=== PATIENT | female | born 1965 | race Caucasian/White ===

== ENCOUNTER 2019-10-14 20:20 | Emergency (ER) | payer BC, SELFPAY ==
--- NOTE | ~2019-10-14 | CT_ITS ---
EXAMINATION: CT abdomen pelvis w con DATE: 10/14/2019 21:54 INDICATION: Epigastric pain and nausea TECHNIQUE: Computed tomography (CT) of the abdomen and pelvis was performed with 100 mL Omnipaque-350 intravenous contrast. Automated exposure control and iterative reconstruction technique were employe d. The dose-length product was 623.48 mGy-cm. COMPARISON: CT abdomen dated 07/29/2008 FINDINGS: Minimal dependent atelectasis in the bilateral lower lobes. Heart size is normal. No pericardial or p leural effusion. Cholecystectomy clips at the gallbladder fossa. Liver, spleen, pancreas, bilateral a drenal glands and kidneys are normal. Normal appendix. There is residual oral contrast material throu ghout the mid to distal colon likely related to a reported prior outside institution CT from 5 days p rior. No bowel obstruction or abnormal bowel wall thickening. Bladder is normal. Fibroid uterus. Bila teral tubal ligation clips. 3.6 x 2.0 x 2.0 cm fluid attenuation cystic structure at the right adnexa . This appears positioned between the 2 tubal ligation clips which were previously positioned in rela tively close proximity and differential would include ovarian cyst or potentially short segmental hyd rosalpinx positioned between the 2 clips. No free intraperitoneal gas or fluid. No pathologically enl arged abdominal or pelvic lymphadenopathy. Severe spondylosis at L5-S1 with mild spondylosis in the m ore cephalad lumbar and lower thoracic spine. IMPRESSION: 1. 3.6 x 2.0 x 2.0 cm cystic structure at the right adnexa which could represent either an ovarian cy st or potentially a segmental hydrosalpinx positioned between 2 tubal ligation clips. No other acute intra-abdominal/pelvic process. Reviewed, dictated and finalized at location A. R SCREWDRIVER OPERATOR IMPRESSION: 1. 3.6 x 2.0 x 2.0 cm cystic structure at the right adnexa which could represen t either an ovarian cyst or potentially a segmental hydrosalpinx positioned bet ween 2 tubal ligation clips. No other acute intra-abdominal/pelvic process.
[2019-10-14 20:27] VITALS: BP 181/87; PULSE 100; RESP 19; O2SAT 100
--- NOTE | 2019-10-14 20:40 | ED.ABDPAIN ---
HPI - Abdominal Pain General Chief Complaint: Abdominal Pain Stated Complaint: abd & back pain Time Seen by Provider: 10/14/19 20:23 Source: patient and RN notes reviewed Mode of arrival: ambulatory Limitations: no limitations History of Present Illness HPI narrative: Pt is a 54 y/o female with a Hx of cholecystectomy, who presents to the ED with c/o worsening RUQ pain starting roughly 1.5 months ago. She notes that she was initially evaluated by her PCP for her pain, and states that she was treated with Protonix for gastritis. Pt notes that she later received an endoscopy on 09/29/19, which showed no acute abnormalities. She states that she received a CT scan of her ABD/Pelvis 5 days ago, but notes that she hasn't yet received the results of the scan. Pt states that her pain worsened throughout the day today, noting that it has been constant all day. She notes that her pain radiates into her rt lower back, and states that nothing in particular seems to aggravate her pain. Pt reports nausea accompanying her pain as well as dysuria starting this evening. She currently denies any diarrhea. MD elicited complaint: abdominal pain Pertinent past history: other (fatty liver) Onset (ago): month(s) (1.5) Pain Consistency: constant Location: RUQ Radiation: other (rt low back) Associated symptoms: nausea and dysuria Related Data Home Medications Medication Instructions Recorded Confirmed Lactobacillus acidophilus 1,400 mmu cells PO DAILY 07/21/19 07/24/19 [Probiotic Acidophilus] albuterol sulfate [ProAir HFA] 1 inh INHALATION QID PRN 07/21/19 07/24/19 lansoprazole [Prevacid] 15 mg PO DAILY 07/21/19 07/24/19 Allergies Allergy/AdvReac Type Severity Reaction Status Date / Time hydrocodone Allergy Mild Itching Verified 10/14/19 20:33 meperidine AdvReac Mild Itching Verified 10/14/19 20:33 Review of Systems Review of Systems: All systems reviewed & are unremarkable except as noted in HPI and below Gastrointestinal: Gastrointestinal: Reports abdominal pain (RUQ pain radiating into rt low back), Denies diarrhea and Reports nausea Genitourinary: Genitourinary: Reports dysuria PMFSH Past Medical History Medical History Anxiety Arthritis Asthma Back pain Fatty liver GERD (gastroesophageal reflux disease) Hypoglycemia HOPE (obstructive sleep apnea) Spinal stenosis Surgical History Surgical History History of tubal ligation Painful total knee replacement, left Status post right partial knee replacement Family History Family History (Updated 12/10/16 @ 13:50 by DOCTOR UNKNOWN) Father Family history of congenital heart disease Family history of arthritis Mother Family history of malignant neoplasm of breast in first degree relative Social History Social History Smoking status: Former smoker Smoking end date: 09/09/85 Gender identity (if verbalized by the patient): Female Comments PCP is Dr. Stevens. Exam Const: General: healthy appearing, no acute distress, well developed and alert Orientation/consciousness: patient oriented x3 Limitations: no limitations HENMT: Head: normocephalic and atraumatic Ears: external ears normal Mouth: Yes oropharynx normal and Yes moist mucous membranes Resp: Effort & Inspection: normal respiratory effort and able to speak in complete sentences Auscultation: clear to auscultation bilaterally Cardio: Rate: regular rate Rhythm: regular rhythm Peripheral pulses: radial pulses present and popliteal pulses present GI: GI Palp: Yes Soft to palpation, Yes Tenderness to palpation present (GI) (mild upper abdominal tenderness in epigastrium/RUQ/LUQ), No Guarding due to palpation present (GI) and No Palpable mass present Back/Spine/Pelvis: Other: Right paraspinal muscular tenderness T4 through L1 w/o midline tenderness, no left sided pain. Skin: General skin exam: normal color and no rash
[2019-10-14] MEDS: MORPHINE SULFATE 4 MG/ML INJ IV PUSH (20:57)
[2019-10-14] MEDS: ONDANSETRON INJ 4 MG/2 ML VIAL IV PUSH (20:58)
[2019-10-14 20:59] VITALS: BP 144/82; PULSE 74; RESP 18; O2SAT 100
[2019-10-14 21:10] LABS: Basophils Absolute Auto 0.1 K/mm3 (0.0-0.1); Basophils Percent Auto 0.9 % (0.2-1.2); Eosinophils Absolute Auto 0.2 K/mm3 (0-0.3); Eosinophils Percent Auto 2.9 % (0-4.4); Hematocrit 39.8 % (37.0-47.0); Immature Granulocyte Absolute 0.01 K/mm3 (0.00-0.031); Immature Granulocyte Percent A 0.1 % (0-0.5); Lymphocytes Absolute Auto 2.48 K/mm3 (0.9-3.2); Lymphocytes Percent Auto 36.2 % (18.3-44.2); Mean Corpuscular HGB Conc 30.2 g/dl (32-36); Mean Corpuscular Hemoglobin 23.3 pg (26-34); Mean Corpuscular Volume 77.3 fl (80-100); Mean Platelet Volume 10.1 fl (7.4-10.4); Monocytes Absolute Auto 0.4 K/mm3 (0.1-0.6); Monocytes Percent Auto 6.4 % (2.6-8.5); Neutrophils Absolute Auto 3.7 K/mm3 (1.3-6.7); Neutrophils Percent Auto 53.5 % (45.5-73.1); Platelet Count Result 301 k/mm3 (150-375); Red Blood Count 5.15 M/mm3 (4.2-5.4); Red Cell Distribution Width 15.2 % (11.5-14.5); White Blood Count 6.9 K/mm3 (4.5-10.0)
[2019-10-14 21:17] LABS: Add Urine Microscopic? YES; Appearance Urine Clear (Clear); Bilirubin Urine Negative (Negative); Blood Urine Negative (Negative); Color Urine Straw (Yellow); Glucose Urine UA Negative (Negative); Ketones Urine Negative (Negative); Leukocyte Esterase Ur 3+ LEU/UL (Negative); Mucus Urine Rare /lpf; Nitrate Urine Negative (Negative); Protein Urine Negative (Negative); RBC Urine 0-2 /hpf (0-2); Specific Grav Ur 1.006 (1.001-1.035); Squamous Epithelial Cell Urine Few /hpf (Few); Urobilinogen Urine Negative mg/dL (<2.0); WBC Urine 0-3 /hpf
[2019-10-14 21:21] LABS: Alanine Aminotransferase 16 U/L (4-35); Albumin Level 4.5 g/dL (3.5-5.1); Alkaline Phosphatase 92 U/L (38-126); Aspartate Amino Transferase 21 U/L (14-36); Bilirubin,Total 0.3 mg/dL (0.2-1.3); Blood Urea Nitrogen 13 mg/dL (7-17); Calcium 9.8 mg/dL (8.4-10.2); Carbon Dioxide 27 mmol/L (22-30); Chloride 100 mmol/L (98-107); Estimated Glomerular Filt Rate 52; Glucose 134 mg/dL (65-105); Lipase 89 U/L (23-300); Potassium 3.7 mmol/L (3.4-5.0); Sodium 140 mmol/L (137-145)
[2019-10-14 23:11] VITALS: BP 127/80; PULSE 61; RESP 16; O2SAT 100
== END 2019-10-14 23:13 | disposition home or self-care (01) ==
PROVIDERS: Emergency Provider Emergency Medicine
DX: R10.13 Epigastric pain (principal); N83.201 Unspecified ovarian cyst, right side; M19.90 Unspecified osteoarthritis, unspecified site; J45.909 Unspecified asthma, uncomplicated; K21.9 Gastro-esophageal reflux disease without esophagitis; G47.33 Obstructive sleep apnea (adult) (pediatric); Z96.653 Presence of artificial knee joint, bilateral; Z87.891 Personal history of nicotine dependence
CPT/HCPCS: 36415; 74177; 80053; 81001; 83690; 85025; 96374; 96375; 99284; J2270; J2405; Q9967

== ENCOUNTER 2020-07-05 09:42 | Outpatient (CLI) | payer BC, SELFPAY ==
--- NOTE | 2020-07-05 11:00 | NEURO_ITS ---
Patient Number: [id number] Impression: # Complains of pain in upper and lower extremities. History of fibromyalgia. # Normal motor and sensory nerve conduction study except subtle evolving Carpal Tunnel Syndrome on the right side. # Normal needle/EMG exam. # Clinical correlation recommended. Nerve Conduction Studies Anti Sensory Summary Table Stim Site NR Peak (ms) P-T Amp (?V) Site1 Site2 Delta-P (ms) Dist (cm) Sathish (m/s) Left Median Anti Sensory (2-3nd Digit) Wrist 2.8 85.4 Wrist 2-3nd Digit 2.8 14.0 50 Wrist 2.7 75.5 Wrist 2-3nd Digit 2.8 14.0 50 Right Median Anti Sensory (2-3nd Digit) Wrist 3.3 26.1 Wrist 2-3nd Digit 3.3 14.0 42 Wrist 3.2 53.5 Wrist 2-3nd Digit 3.3 14.0 42 Left Radial Anti Sensory (Base 1st Digit) Wrist 2.0 29.2 Wrist Base 1st Digit 2.0 0.0 Right Radial Anti Sensory (Base 1st Digit) Wrist 2.4 34.5 Wrist Base 1st Digit 2.4 0.0 Left Sup Fibular Anti Sensory (Ant Lat Mall) 14 cm 3.1 22.4 14 cm Ant Lat Mall 3.1 16.0 52 Right Sup Fibular Anti Sensory (Ant Lat Mall) 14 cm 2.9 18.1 14 cm Ant Lat Mall 2.9 16.0 55 Left Sural Anti Sensory (Lat Mall) Calf 3.6 19.1 Calf Lat Mall 3.6 16.0 44 Right Sural Anti Sensory (Lat Mall) Calf 3.0 5.5 Calf Lat Mall 3.0 16.0 53 Left Ulnar Anti Sensory (5th Digit) Wrist 2.3 61.8 Wrist 5th Digit 2.3 14.0 61 Right Ulnar Anti Sensory (5th Digit) Wrist 2.3 56.0 Wrist 5th Digit 2.3 14.0 61 Motor Summary Table Stim Site NR Onset (ms) O-P Amp (mV) Site1 Site2 Delta-0 (ms) Dist (cm) Sathish (m/s) Left Median Motor (Abd Poll Brev) Wrist 3.0 3.6 Elbow Wrist 4.2 26.0 62 Elbow 7.2 3.2 Right Median Motor (Abd Poll Brev) Wrist 3.8 2.9 Elbow Wrist 4.3 24.0 56 Elbow 8.1 2.8 Left Peroneal Motor (Vastus Med) Ankle 3.7 2.0 Popit Ankle 7.5 39.0 52 Popit 11.2 1.4 Right Peroneal Motor (Vastus Med) Ankle 3.9 1.1 Popit Ankle 6.8 36.0 53 Popit 10.7 2.4 Left Tibial Motor (Abd Garcia Brev) Ankle 4.5 8.0 Knee Ankle 7.8 40.0 51 Knee 12.3 5.1 Right Tibial Motor (Abd Garcia Brev) Ankle 4.1 9.6 Knee Ankle 8.2 42.0 51 Knee 12.3 9.7 Left Ulnar Motor (Abd Dig Minimi) Wrist 2.6 8.2 A Elbow Wrist 4.8 28.0 58 A Elbow 7.4 7.8 Right Ulnar Motor (Abd Dig Minimi) Wrist 2.5 4.8 A Elbow Wrist 4.4 27.0 61 A Elbow 6.9 4.2 F Wave Studies NR F-Lat (ms) L-R F-Lat (ms) Left Median (Mrkrs) (Abd Poll Brev) 26.19 0.64 Right Median (Mrkrs) (Abd Poll Brev) 26.84 0.64 Left Peroneal (Mrkrs) (EDB) 48.09 0.66 Right Peroneal (Mrkrs) (EDB) 48.75 0.66 Left Tibial (Mrkrs) (Abd Hallucis) 48.13 0.00 Right Tibial (Mrkrs) (Abd Hallucis) 48.13 0.00 Left Ulnar (Mrkrs) (Abd Dig Min) 25.23 0.38 Right Ulnar (Mrkrs) (Abd Dig Min) 24.85 0.38 EMG Side Muscle Nerve Root Ins Act Fibs Amp Dur Recrt Comment Right 1stDorInt Ulnar C8-T1 Nml Nml Nml Nml Nml Right Ext Indicis Radial (Post Int) C7-8 Nml Nml Nml Nml Nml Right Ext Digitorum Radial (Post Int) C7-8 Nml Nml Nml Nml Nml Right BrachioRad Radial C5-6 Nml Nml Nml Nml Nml Right PronatorTeres Median C6-7 Nml Nml Nml Nml Nml Right Abd Poll Brev Median C8-T1 Nml Nml Nml Nml Nm
== END 2020-07-05 09:43 | disposition home or self-care (01) ==
PROVIDERS: PCP Internal Medicine; Visit Provider Internal Medicine
DX: M79.621 Pain in right upper arm (principal); M79.622 Pain in left upper arm
CPT/HCPCS: 95886; 95913

== ENCOUNTER 2021-02-13 12:03 | Outpatient (CLI) | payer BC, SELFPAY ==
--- NOTE | ~2021-02-13 | XR_ITS ---
EXAMINATION: XR orbits min 4V DATE: 02/13/2021 13:07 INDICATION: Right-sided face injury. TECHNIQUE: 4 views of the orbits were obtained. COMPARISON: None. FINDINGS: Bone alignment is normal. No fracture. IMPRESSION: 1. No fracture. Reviewed, dictated and finalized at location A. IMPRESSION: 1. No fracture.
== END 2021-02-13 12:04 ==
LOC: MICIMG 12:05
PROVIDERS: PCP Internal Medicine; Visit Provider Internal Medicine
DX: S01.80XA Unspecified open wound of other part of head, initial encounter (principal); X58.XXXA Exposure to other specified factors, initial encounter
CPT/HCPCS: 70200

== ENCOUNTER 2021-02-16 14:21 | Outpatient (CLI) | payer BC, SELFPAY ==
--- NOTE | ~2021-02-16 | MR_ITS ---
EXAMINATION: MR brain/brain stem wo con EXAM DATE: 02/16/2021 15:04 INDICATION: Dizziness, syncope collapse. Fall, facial injury 02/12/2021. TECHNIQUE: Magnetic resonance imaging (MRI) of the brain/brain stem obtained without contrast. Kei al T1, axial diffusion, gradient echo (T2*), T1, T2, FLAIR sequences obtained. There is no prior st udy for comparison. FINDINGS: Small right frontal scalp contusion along the brow. There are no areas of restricted diffus ion to suggest acute infarction. There is no acute hemorrhage seen on the T2*, a hemosiderin sensiti ve sequence. No intraparenchymal brain mass lesion. There is minimal periventricular and subcortical T2/FLAIR signal hyperintensity, nonspecific but probably related to small vessel ischemic disease (m icroangiopathy). There are no extra-axial collections. Flow voids are seen in the cerebral arterie s on the T2-weighted sequences consistent with their expected patency. The orbits are unremarkable. IMPRESSION: 1. Small right frontal scalp contusion. 2. Minimal microangiopathy. Reviewed, dictated and finalized at location A.
== END 2021-02-16 14:22 ==
PROVIDERS: PCP Internal Medicine; Visit Provider Internal Medicine
DX: R42 Dizziness and giddiness (principal); R55 Syncope and collapse; S00.03XA Contusion of scalp, initial encounter; X58.XXXA Exposure to other specified factors, initial encounter
CPT/HCPCS: 70551

== ENCOUNTER 2021-06-20 14:28 | Outpatient (CLI) | payer BC, SELFPAY ==
--- NOTE | ~2021-06-20 | MM_ITS ---
EXAMINATION: MM screening efren BI w marcial HISTORY: Screening TECHNIQUE: Craniocaudal and mediolateral oblique 3-D tomosynthesis images were obtained and synthetic 2-D images were generated. CAD analysis was submitted and interpreted. COMPARISON: Comparison to multiple prior studies sequentially, with oldest reviewed study dated 06/07. BREAST PARENCHYMAL COMPOSITION: There are scattered areas of fibroglandular density. FINDINGS: There is no evidence of suspicious mass, calcification, or architectural distortion to sugg est malignancy in either breast. There has been no suspicious interval change. IMPRESSION: 1. No mammographic evidence of malignancy. 2. Recommend routine screening mammography in one year. BI-RADS Category 1: Negative Reviewed, dictated and finalized at location A.
== END 2021-06-20 14:29 | disposition home or self-care (01) ==
LOC: ANHIMG 14:30
PROVIDERS: PCP Internal Medicine; Visit Provider Obstetrics & Gynecology
DX: Z12.31 Encounter for screening mammogram for malignant neoplasm of breast (principal)
CPT/HCPCS: 77063; 77067

== ENCOUNTER → 2021-07-20 13:15 | Outpatient (CLI) | payer BC, SELFPAY ==
--- NOTE | ~2021-07-20 | CT_ITS ---
EXAMINATION: CT abdomen pelvis wo/w con DATE: 07/20/2021 14:10 INDICATION: Right flank pain, kidney stone TECHNIQUE: Computed tomography (CT) of the abdomen and pelvis was performed without intravenous contr ast. CT of the abdomen and pelvis was then performed with a total of 100 mL Omnipaque 350 intravenous contrast using a double-bolus technique for simultaneous opacification of the renal parenchyma and r enal collecting system. The dose-length product (DLP) was 1745.27 mGy-cm. Automated exposure control and iterative reconstruction technique were employed. COMPARISON: 10/14/2019 FINDINGS: The lung bases are clear. The heart size is normal. The gallbladder is surgically absent. T he liver, spleen, pancreas, and adrenal glands are normal. Kidneys are unremarkable. No suspicious re nal or urothelial lesion is identified. No stones are identified in the kidneys, ureters, or bladder. There is no hydronephrosis or hydroureter. Colonic diverticulosis is present without evidence of div erticulitis. No pathologically enlarged abdominal or pelvic lymph nodes are identified. There is no f ree intraperitoneal gas or evidence of bowel obstruction. A small fluid collection situated between t ubal ligation clips in the right adnexa has decreased in size. The appendix is normal. There is sever e lumbar spondylosis at L5-S1. A moderate volume of colonic stool is present. IMPRESSION: 1. No CT correlate for the patient's symptoms. No urolithiasis identified. Reviewed, dictated and finalized at location B. ER EXPERT
== END ==
PROVIDERS: PCP Internal Medicine; Visit Provider Internal Medicine
DX: N20.0 Calculus of kidney (principal)
CPT/HCPCS: 74178; Q9967

== ENCOUNTER 2021-08-01 09:34 | Outpatient (CLI) | payer BC, SELFPAY ==
--- NOTE | ~2021-08-01 | XR_ITS ---
EXAMINATION: XR thoracic spine 2V EXAM DATE: 08/01/2021 10:21 INDICATION: Pain in thoracic spine. TECHNIQUE: Frontal and lateral projections of the thoracic spine as well as lateral swimmers projecti on of the upper thoracic spine for interpretation. There is no prior study for comparison. FINDINGS: There are cholecystectomy clips. Mild thoracic spondylosis, mild mid thoracic dextroscolio sis. There are no bony erosions identified. There are no acute fractures identified. The vertebral helen dies are aligned in the AP dimension. IMPRESSION: Mild thoracic spondylosis and dextroscoliosis. Reviewed, dictated and finalized at location A. MIC DESIGNER
== END 2021-08-01 09:35 ==
PROVIDERS: PCP Internal Medicine; Visit Provider Nurse Practitioner Adult Health
DX: M47.894 Other spondylosis, thoracic region (principal)
CPT/HCPCS: 72070

== ENCOUNTER 2022-07-31 10:08 | Outpatient (CLI) | payer BC, SELFPAY ==
--- NOTE | ~2022-07-31 | DEXA_ITS ---
Bone Density Report Name: ERICK GIRON Age: 57 Sex: Female Ethnicity: White Date of : 1965 Indication: postmenopausal; screening for osteoporosis; height loss; inflammatory bowel disease; asthma or emphysema; Referring Provider: ROCK, LILIA Dos Santos Study: Bone densitometry was performed. Exam Date: July 31, 2022 Accession number: [id number] Bone Density: Region BMD T-score Z-score Classification AP Spine(L1-L4) 1.059 0.1 1.3 Normal Femoral Neck (Left) 0.778 -0.6 0.5 Normal Total Hip (Left) 0.912 -0.2 0.5 Normal Femoral Neck (Right) 0.795 -0.5 0.6 Normal Total Hip (Right) 0.960 0.1 0.9 Normal Total Hip Mean 0.936 -0.1 0.7 Normal World Health Organization criteria for BMD impression classify patients as: Normal (T-score at or above -1.0), Osteopenia (T-score between -1.0 and -2.5), or Osteoporosis (T-score at or below -2.5). 10-year Fracture Risk: FRAX not reported because: All T-scores for Spine Total, Hip Total, Femoral Neck at or above -1.0 Clinical Information Provided by Patient: Has used the following medications: Vitamin D Has the following medical conditions: Asthma or Emphysema, Inflammatory bowel diseases Patient maximum height was 64 Menopause Age: 51 No regular weight bearing exercise Drinks caffeinated beverages Onset of menses at age 14 Number of children 3 Impression: The patient has normal bone mass. Discussion: BONE DENSITY IS ABOVE THE MINIMUM DESIRABLE LEVEL AT ALL SKELETAL SITES TESTED. This patient?s bone mineral density is above the minimum desirable level (T-score -1.0 or better) at all sites measured. The patient should follow a healthful lifestyle (good nutrition with adequate calcium and vitamin D, and appropriate weight-bearing exercise). Follow-Up: Consider repeating this study in 5 years or sooner if there is some new clinical indication. Reported by: KAI on 07/31/2022 10:48:00 AM. Reviewed, dictated and finalized at location ACarline CORTES
== END 2022-07-31 10:09 | disposition home or self-care (01) ==
LOC: ANHIMG 10:09
PROVIDERS: PCP Internal Medicine; Visit Provider Internal Medicine
DX: Z78.0 Asymptomatic menopausal state (principal)
CPT/HCPCS: 77080

== ENCOUNTER → 2022-07-31 10:53 | Outpatient (CLI) | payer BC, SELFPAY ==
--- NOTE | ~2022-07-31 | MM_ITS ---
EXAMINATION: MM screening efren BI w marcial HISTORY: Screening mammogram TECHNIQUE: Craniocaudal and mediolateral oblique 3-D tomosynthesis images were obtained and synthetic 2-D images were generated. CAD analysis was submitted and interpreted. COMPARISON: 06/20/2021, 10/05/2019, 08/05/2018 lateral screening mammogram examinations BREAST PARENCHYMAL COMPOSITION: There are scattered areas of fibroglandular density. FINDINGS: There is no evidence of suspicious mass, calcification, or architectural distortion to sugg est malignancy in either breast. There has been no suspicious interval change. IMPRESSION: 1. No mammographic evidence of malignancy. 2. Recommend routine screening mammography in one year. BI-RADS Category 1: Negative Reviewed, dictated and finalized at location A. R CRIME INVESTIGATOR
== END ==
PROVIDERS: PCP Internal Medicine; Visit Provider Obstetrics & Gynecology
DX: Z12.31 Encounter for screening mammogram for malignant neoplasm of breast (principal)
CPT/HCPCS: 77063; 77067

== ENCOUNTER 2024-02-09 20:58 | Emergency (ER) | payer BC, SELFPAY ==
[2024-02-09] VITALS (7 sets, daily range): BP systolic 115–132; BP diastolic 80–104; PULSE 62–75; RESP 14–20; TEMP 37; O2SAT 96–100
--- NOTE | ~2024-02-09 | XR_ITS ---
EXAMINATION: XR chest 1V portable DATE: 02/09/2024 21:40 INDICATION: Chest pain. Shortness of breath. TECHNIQUE: A single frontal view of the chest was obtained. COMPARISON: Chest 2 views 10/05/2015 FINDINGS: There is no pneumonia, pleural effusion, or pneumothorax. The heart size is normal. Surgica l clips in the right upper quadrant are likely from cholecystectomy. IMPRESSION: 1. No acute cardiopulmonary disease. Reviewed, dictated and finalized at location E.
--- NOTE | 2024-02-09 20:59 | ECG_ITS ---
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 Measurements Intervals [place] Rate: 69 P: 27 [place]: 147 QRS: 10 QRSD: 81 T: 29 QT: 369 QTc: 398 Interpretive Statements SINUS RHYTHM NORMAL ELECTROCARDIOGRAM No previous ECG available for comparison Electronically Signed On 02-10-2024 07:30:36 CDT by Dom Ng M.D.
[2024-02-09] MEDS: ASPIRIN 81 MG CHEWABLE TABLET 324 MG PO (21:21)
[2024-02-09 21:33] LABS: Basophils Percent Auto 0.6 % (0.2-1.2); Eosinophils Absolute Auto 0.3 K/mm3 (0-0.3); Eosinophils Percent Auto 4.4 % (0-4.4); Hematocrit 39.1 % (37.0-47.0); Hemoglobin 12.9 g/dL (12.0-15.0); Immature Granulocyte Absolute 0.01 K/mm3 (0.00-0.031); Immature Granulocyte Percent A 0.2 % (0-0.5); Lymphocytes Absolute Auto 2.26 K/mm3 (0.9-3.2); Lymphocytes Percent Auto 36.5 % (18.3-44.2); Mean Corpuscular Hemoglobin 27.9 pg (26-34); Mean Corpuscular Volume 84.6 fl (80-100); Mean Platelet Volume 10.1 fl (7.4-10.4); Monocytes Absolute Auto 0.6 K/mm3 (0.1-0.6); Monocytes Percent Auto 8.9 % (2.6-8.5); Neutrophils Absolute Auto 3.1 K/mm3 (1.3-6.7); Neutrophils Percent Auto 49.4 % (45.5-73.1); Platelet Count Result 225 k/mm3 (150-375); Red Blood Count 4.62 M/mm3 (4.2-5.4); Red Cell Distribution Width 13.4 % (11.5-14.5); White Blood Count 6.2 K/mm3 (4.5-10.0)
--- NOTE | 2024-02-09 21:40 | PC.NURSE ---
4 81mg baby aspirin given PO and an 18g L AC IV established at 2120. EDP in chart and unable to document at this time.
--- NOTE | 2024-02-09 21:43 | ED.CHESTPAIN ---
HPI - Chest Pain General Chief Complaint: Chest Pain Stated Complaint: Chest pain Time Seen by Provider: 02/09/24 21:39 History of Present Illness HPI narrative: Patient is a 58-year-old female who presents to the emergency department this evening complaining of chest pain which has been ongoing for over a month. Patient admits that she has been going under a lot of stress recently and has been dealing with anxiety which she believes could be contributing to the symptoms, however, she wanted to be evaluated and make sure that this she is having is not from her heart. She denies any history of cardiovascular disease and his currently denying any shortness of breath although patient admits that she has been getting some exertional dyspnea at times. Denies any nausea, vomiting or abdominal pain. Patient also denies any recent illness or any fevers or chills at home. No additional symptoms or concerns at this time. Related Data Home Medications Medication Instructions Recorded Confirmed albuterol sulfate 90 mcg/actuation 1 inh inhalation QID PRN Shortness 07/21/19 01/14/21 aerosol inhaler (ProAir HFA) Of Breath lansoprazole 15 mg capsule,delayed 15 mg PO DAILY 07/21/19 01/14/21 release (Prevacid) gabapentin 100 mg capsule 300 mg PO BID 01/12/21 01/14/21 lisinopril 5 mg tablet 5 mg PO DAILY 01/12/21 01/14/21 paroxetine HCl 10 mg tablet (Paxil) 10 mg PO DAILY 01/12/21 01/14/21 Allergies Allergy/AdvReac Type Severity Reaction Status Date / Time hydrocodone Allergy Mild Itching Verified 02/09/24 21:06 meperidine AdvReac Mild Itching Verified 02/09/24 21:06 Review of Systems Review of Systems: All systems are reviewed and are negative unless stated otherwise in the HPI. [facility] Past Medical History Medical History (Updated 02/09/24 @ 22:59 by Rhea Lake MD) Anxiety Arthritis Asthma Back pain Fatty liver GERD (gastroesophageal reflux disease) Hypoglycemia HOPE (obstructive sleep apnea) Spinal stenosis Surgical History Surgical History History of tubal ligation Painful total knee replacement, left Status post right partial knee replacement Family History Family History Father Family history of congenital heart disease Family history of arthritis Mother Family history of malignant neoplasm of breast in first degree relative Social History Social History Smoking status: Former smoker Smoking end date: 09/09/85 Gender identity (if verbalized by the patient): Female Exam Narrative: General: Alert, awake, afebrile, in no acute distress. HEENT: PERRL, no rhinorrhea, no post nasal drip, oropharynx clear. Cardiovascular: Regular rate and rhythm, no murmurs, rubs or gallops, no peripheral edema. Respiratory: Clear to auscultation bilaterally, no tachypnea, no wheezing, no rhonchi, no rubs, no respiratory distress. Abdomen: Soft, nontender, nondistended, no rebound, no guarding, no peritoneal signs. Musculoskeletal: No joint swelling or deformity, normal muscle tone. Skin: No rashes or petechia, no signs of infection. Neurological: Alert and oriented to person, place, and time. Follows all commands. No focal deficits, speech is clear and fluent. Course Vital Signs Vital signs: Vital Signs Temperature 98.6 F 02/09/24 21:04 Pulse Rate 75 02/09/24 21:04 Respiratory Rate 20 02/09/24 21:04 Blood Pressure 132/83 02/09/24 21:04 Pulse Oximetry 99 02/09/24 21:04 Temperature 98.6 F 02/09/24 21:04 Pulse Rate 71 02/09/24 21:36 Respiratory Rate 20 02/09/24 21:04 Blood Pressure 132/83 02/09/24 21:04 Pulse Oximetry 100 02/09/24 21:37 Oxygen Delivery Room Air 02/09/24 21:37 MDM - Chest Pain MDM Narrative Medical decision making narrative: The patient was evaluated by myself in the emerg
[2024-02-09 21:45] LABS: Alanine Aminotransferase 16 U/L (6-35); Albumin Level 4.4 g/dL (3.5-5.1); Alkaline Phosphatase 67 U/L (38-126); Anion Gap 8 mmol/L (4-12); Aspartate Amino Transferase 25 U/L (14-36); Bilirubin,Total 0.5 mg/dL (0.2-1.3); Blood Urea Nitrogen 14 mg/dL (7-17); Calcium 9.5 mg/dL (8.4-10.2); Carbon Dioxide 26 mmol/L (22-30); Chloride 102 mmol/L (98-107); Estimated CRCL calculation 47 ml/min; Estimated Glomerular Filt Rate 46; Glucose 109 mg/dL (65-110); Lipase 71 U/L (23-300); Sodium 136 mmol/L (137-145)
[2024-02-09 21:51] LABS: Prothrombin Time 13.9 Seconds (11.1-14.7)
[2024-02-09 21:52] LABS: Partial Thromboplastin Time 27.8 Seconds (22.3-36.8)
[2024-02-09 21:56] LABS: Troponin I < 0.012 ng/mL (0.000-0.034)
[2024-02-09 21:58] LABS: Magnesium 1.9 mg/dL (1.6-2.3)
== END 2024-02-09 23:19 | disposition home or self-care (01) ==
PROVIDERS: Emergency Provider Emergency Medicine; PCP Internal Medicine
DX: R07.89 Other chest pain (principal); J45.909 Unspecified asthma, uncomplicated; M19.90 Unspecified osteoarthritis, unspecified site; K21.9 Gastro-esophageal reflux disease without esophagitis; G47.33 Obstructive sleep apnea (adult) (pediatric); F41.9 Anxiety disorder, unspecified; Z96.653 Presence of artificial knee joint, bilateral; Z79.899 Other long term (current) drug therapy; Z87.891 Personal history of nicotine dependence
CPT/HCPCS: 36415; 71045; 80053; 83690; 83735; 84484; 85025; 85610; 85730; 93005; 99284; A9270

== ENCOUNTER 2024-03-03 02:41 | Day surgery (SDC) | payer BC, SELFPAY ==
[2024-03-02 13:32] VITALS: BMI 29.5
[2024-03-03] VITALS (8 sets, daily range): BP systolic 89–133; BP diastolic 54–71; PULSE 47–55; RESP 10–21; TEMP 36.4; O2SAT 95–99; BMI 29.9
[2024-03-03 09:32] LABS: Basophils Absolute Auto 0.1 K/mm3 (0.0-0.1); Basophils Percent Auto 0.9 % (0.2-1.2); Eosinophils Absolute Auto 0.3 K/mm3 (0-0.3); Eosinophils Percent Auto 5.4 % (0-4.4); Hematocrit 40.1 % (37.0-47.0); Hemoglobin 13.1 g/dL (12.0-15.0); Immature Granulocyte Absolute 0.01 K/mm3 (0.00-0.031); Immature Granulocyte Percent A 0.2 % (0-0.5); Lymphocytes Absolute Auto 2.14 K/mm3 (0.9-3.2); Lymphocytes Percent Auto 38.4 % (18.3-44.2); Mean Corpuscular HGB Conc 32.7 g/dl (32-36); Mean Corpuscular Volume 85.7 fl (80-100); Mean Platelet Volume 10.4 fl (7.4-10.4); Monocytes Absolute Auto 0.6 K/mm3 (0.1-0.6); Monocytes Percent Auto 10.4 % (2.6-8.5); Neutrophils Absolute Auto 2.5 K/mm3 (1.3-6.7); Neutrophils Percent Auto 44.7 % (45.5-73.1); Platelet Count Result 204 k/mm3 (150-375); Red Blood Count 4.68 M/mm3 (4.2-5.4); Red Cell Distribution Width 13.4 % (11.5-14.5); White Blood Count 5.6 K/mm3 (4.5-10.0)
[2024-03-03 09:45] LABS: Anion Gap 8 mmol/L (4-12); Blood Urea Nitrogen 12 mg/dL (7-17); Calcium 9.1 mg/dL (8.4-10.2); Carbon Dioxide 28 mmol/L (22-30); Chloride 105 mmol/L (98-107); Estimated CRCL calculation 47 ml/min; Estimated Glomerular Filt Rate 46; Glucose 101 mg/dL (65-110); Potassium 4.2 mmol/L (3.4-5.0); Sodium 141 mmol/L (137-145)
--- NOTE | 2024-03-03 10:49 | WPDHPUPDATE1 ---
History and Physical Update Update Date/Time: 03/03/24 10:49 History and Physical has been reviewed, including an updated exam of the patient. There are NO changes in the patient's condition. Risks, benefits, and alternatives have been discussed and questions answered. Patient agrees to proceed with procedure.
--- NOTE | 2024-03-03 10:49 | WPDMODSED ---
Moderate Sedation Note-Pt Data Patient Data Diagnosis: Chest pain Present Complaint: Chest pain Procedure to be performed/Plan: Coronary angiography, left heart cath, +/- PCI Allergies Allergy/AdvReac Type Severity Reaction Status Date / Time codeine AdvReac Intermediate Itching Verified 03/03/24 09:49 Home Medications Medication Instructions Recorded Confirmed Type albuterol sulfate 90 mcg/actuation 1 inh inhalation QID PRN Shortness 07/21/19 03/02/24 History aerosol inhaler (ProAir HFA) Of Breath mupirocin 2 % topical ointment 1 applic topical TID #1 tube 07/21/19 01/14/21 Rx gabapentin 100 mg capsule 300 mg PO BID 01/12/21 03/02/24 History B6 1.7 mg-folic 400 mcg-B12 2.4 1 cap PO DAILY 03/02/24 03/02/24 History dmo-zarqbs-fnjxflmpmcpy oral capsule (Neuriva Plus Brain Performance) aspirin 81 mg tablet 81 mg PO DAILY 03/02/24 03/02/24 History buspirone 10 mg tablet 10 mg PO DAILY 03/02/24 03/02/24 History linaclotide 145 mcg capsule 145 mcg PO DAILY PRN Constipation 03/02/24 03/02/24 History (Linzess) lisinopril 20 mg tablet 20 mg PO DAILY 03/02/24 03/02/24 History metoprolol tartrate 25 mg tablet 12.5 mg PO BID 03/02/24 03/02/24 History nitroglycerin 0.4 mg sublingual 0.4 mg sublingual PRN PRN Angina 03/02/24 03/02/24 History tablet pantoprazole 40 mg tablet,delayed 40 mg PO DAILY 03/02/24 03/02/24 History release paroxetine HCl 10 mg tablet 10 mg PO DAILY 03/02/24 03/02/24 History rosuvastatin 10 mg tablet 10 mg PO DAILY 03/02/24 03/02/24 History trazodone 100 mg tablet 100 mg PO HS PRN Insomnia 03/02/24 03/02/24 History Current Medications: Active Medications Sodium Chloride (Normal Saline Iv) 500 mls @ 100 mls/hr IV CONT .Q5H TEODORO Sedation/Anesthesia: No previous sedation/anesthesia problems (including family history). [facility] Past Medical History Medical History Anxiety Arthritis Asthma Back pain Fatty liver GERD (gastroesophageal reflux disease) Hypoglycemia HOPE (obstructive sleep apnea) Spinal stenosis Surgical History Surgical History History of tubal ligation Painful total knee replacement, left Status post right partial knee replacement Family History Family History Father Family history of congenital heart disease Family history of arthritis Mother Family history of malignant neoplasm of breast in first degree relative Social History Social History Smoking packs per day: 0.5 Smoking cigarettes per day: 10.0 Years smoked: 1 Smoking pack-years: 0.50 Smoking status: Former smoker Tobacco type: cigarettes Second hand tobacco smoke exposure: Yes Smoking end date: 09/09/85 Substance use: never Living arrangements: with family Gender identity (if verbalized by the patient): Female Spiritual care concerns: No Mod Sed Physical Exam Physical Exam Pre Procedural Exam: Normal: Appearance, Lungs, Heart Rhythm, Neuro Exam, Abdomen, Extremities and Skin Hours since solid foods: 12 Hours since liquid intake: 8 Mallampati Classification: class III Internal Medicine - PN: Obj Da Vital Signs Vital Signs: Vital Signs - 24 hr 03/03/24 09:30 Temperature 36.4 C Pulse Rate 50 L Respiratory Rate 21 H Blood Pressure 133/71 Pulse Oximetry 99 Oxygen Delivery Room Air Meds/Results Medications: Active Medications Generic Name Dose Route Start Last Admin Trade Name Freq PRN Reason Stop Dose Admin Sodium Chloride 500 mls @ 100 mls/hr 03/03/24 08:30 Normal Saline Iv IV CONT .Q5H TEODORO Labs 03/03/24 09:22 03/03/24 09:22 Labs: Laboratory Results - last 24 hr 03/03/24 09:22 WBC 5.6 RBC 4.68 Hgb 13.1 Hct 40.1 MCV 85.7 MCH 28.0 MCHC 32.7 RDW 13.4 Plt Count 204 MPV 10
--- NOTE | 2024-03-03 11:15 | P.PCNCC_ITS ---
Cardiac Cath Procedure Note Date of procedure:: 03/03/24 Performing physician:: CATHETERIZATION LABORATORY REPORT Procedure Date: 03/03/2024 Mergers And Acquisitions Manager: Jailyn Stevens M.D., [facility]? Referring Physician: Ramiro Dodd M.D. ? Anesthesia: Versed and Fentanyl were ordered and given in my presence at 10:51, procedure ended at 11:12. Supervision of nurse monitored moderate sedation with Versed and Fentanyl was provided for 21 minutes. Total of Versed 1mg and Fentanyl 50mcg were administered by the Serials Librarian RN Mc Echavarria. Pre-op Diagnosis: Coronary artery disease Post-op Diagnosis: Mild non-obstructive coronary artery disease Procedure(s): 1. Moderate sedation 2. Ultrasound-guided access of the right radial artery 3. Coronary angiography Access Site: Right radial artery Brief History and Clinical Indications: Patient is a 58 year old female who is referred for [facility] for angina. All risks, benefits and alternatives to left heart catheterization with or without percutaneous coronary intervention was discussed at length with the patient. Risk of complications including but not limited to bleeding, infection, arrhythmia, stroke, worsening kidney function, blood loss, groin hematoma, limb loss, emergency coronary artery bypass grafting, and even were discussed with the patient and all questions were answered. The patient understood and wished to proceed. Time out called, patient name, date of , medical record number, allergies, procedure performed, identify Mergers And Acquisitions Manager, patient and staff member concurred with accurate data, procedure carried on. Findings: LEFT HEART CATHETERIZATION FINDINGS: 1. Left main: The left main coronary artery is widely patent without any significant obstructive disease. 2. Left anterior descending: The LAD and the diagonal branches have luminal irregularities without any significant obstructive angiographic disease. 3. Ramus: The Ramus has mild disease in the proximal portion. No significant obstructive angiographic disease. 4. Left circumflex: The LCX is co-dominant. The LCX has luminal irregularities. The OM branch has mild disease in the mid portion. No significant obstructive angiographic disease. 5. Right coronary artery: The RCA has mild luminal irregularities without any significant obstructive angiographic disease. The RCA is co-dominant vessel. Description of Procedure: Informed consent signed and placed in the chart. Patient transferred to labor economics professor room. Prepped and draped in usual sterile fashion. 2% lidocaine injected subcutaneously in right wrist area. 22-gauge venipuncture catheter used to access the right radial artery under ultrasound guidance. 6-FR slender sheath placed in right radial artery. Nitroglycerine and Verapamil were given intraarterial through the sheath. Versacore wire advanced under fluoroscopy 5F Tig 4 diagnostic catheter engaged Right Coronary Artery 5F FL 4 diagnostic catheter engaged Left Main Coronary Artery. Multiple orthogonal angiogram obtained and reviewed Hemostasis was achieved by application of TR band. Post Operative Condition: Stable No significant blood loss Disposition: Home Plan: The patient will be monitored in the recovery area. Discharge home after post-cath bed rest is completed. The above findings were discussed with the referring physician. Continue aggressive medical therapy and risk factor modification. ? Jailyn Stevens M.D. Interventional Cardiology
== END 2024-03-03 14:47 | disposition home or self-care (01) ==
PROVIDERS: PCP Internal Medicine; Visit Provider Internal Medicine
PROC: 4A023N7 Measurement of Cardiac Sampling and Pressure, Left Heart, Percutaneous Approach (ICD-10-PCS; CPT 93452; principal; 2024-03-03 10:00)
DX: I25.10 Atherosclerotic heart disease of native coronary artery without angina pectoris (principal); F41.8 Other specified anxiety disorders; E78.5 Hyperlipidemia, unspecified; I10 Essential (primary) hypertension; Z87.891 Personal history of nicotine dependence
CPT/HCPCS: 36415; 80048; 85025; 93458; C1769; C1887; C1894; J1644; J2250; J2305; J3010; J7040

== ENCOUNTER 2024-06-19 14:05 | Outpatient (CLI) | payer BC, SELFPAY ==
--- NOTE | ~2024-06-19 | MM_ITS ---
EXAMINATION: MM screening efren BI w marcial HISTORY: Screening TECHNIQUE: Craniocaudal and mediolateral oblique 3-D tomosynthesis images were obtained and synthetic 2-D images were generated. CAD analysis was submitted and interpreted. COMPARISON: Comparison to multiple prior studies sequentially, with oldest reviewed study dated 06/07. BREAST PARENCHYMAL COMPOSITION: Not dense: There are scattered areas of fibroglandular density. FINDINGS: There is no evidence of suspicious mass, calcification, or architectural distortion to sugg est malignancy in either breast. There has been no suspicious interval change. IMPRESSION: 1. No mammographic evidence of malignancy. 2. Recommend routine screening mammography in one year. BI-RADS Category 1: Negative Reviewed, dictated and finalized at location B.
== END 2024-06-19 14:06 | disposition home or self-care (01) ==
LOC: ANHIMG 14:09
PROVIDERS: PCP Internal Medicine; Visit Provider Internal Medicine
DX: Z12.31 Encounter for screening mammogram for malignant neoplasm of breast (principal)
CPT/HCPCS: 77063; 77067

== ENCOUNTER 2025-07-19 01:28 | Day surgery (SDC) | payer BC, SELFPAY ==
[2025-07-15 15:54] VITALS: BMI 30.9
--- OUTSIDE RECORDS SUMMARY | 2025-07-19 01:30 | XMS_ITS | Clinical Summary ---
Author Organization [facility] Address [address] [place] [address] Phone Care Team Providers Care Compliance Vice President Name Role Phone Jeremy Wilson MD Primary Care Provider [phone] Mandy Dubose APRN, [employer] Unavailable [phone] Allergies No known active allergies Medications Fluticasone-Lai meterol (ADVAIR DISKUS IN) take by inhalation. Active ALBUTEROL SULFATE HFA IN take by inhalation. Active busPIRone (BUSPAR) 10 MG Tablet Take 10 mg by mouth 2 times daily. Active dicyclomine (BENTYL) 20 MG Tablet Take 20 mg by mouth every 6 hours as needed. Active ergocalciferol (VITAMIN D) 38002 UNIT Capsule Take 50,000 Units by mouth once a week. Active gabapentin (NEURONTIN) 300 MG Capsule Take 300 mg by mouth in the morning and at bedtime. Active linaclotide (Linzess) 145 MCG Capsule Take by mouth every morning (before breakfast). Active lisinopril (PRINIVIL, ZESTRIL) 20 MG Tablet Take 20 mg by mouth daily. Active PARoxetine (PAXIL) 20 MG Tablet Take 20 mg by mouth daily. Active traZODone (DESYREL) 100 MG Tablet Take 100 mg by mouth nightly. Active Active Problems No known active problems Family History Medical History Relation Name Comments Diabetes Brother Diabetes Father Diabetes Mother Hemachromatosis Mother Relation Name Status Comments Brother Father Mother Social History Tobacco Use Types Packs/Day Years Used Date Smoking Tobacco: Former Cigarettes 0 Q uit: 09/09/2006 Smokeless Tobacco: Never Tobacco Cessation:Counseling Given: Not Answered Alcohol Use Standard Drinks/Week Comments Not Currently 0 (1 standard drink = 0.6 oz pur e alcohol) Comments Unknown Sex and Gender Information Value Date Recorded Sex Assigned at Not on file Legal Sex Female 8:46 AM REGISTERED MASSAGE THERAPIST Gender Identity Not on file Sexual Orientation Not on file Last Filed Vital Signs Vital Sign Reading Time Taken Comments Blood Pressure 108/74 10/17/2023 1:17 PM REGISTERED MASSAGE THERAPIST Pulse 73 10/17/2023 1:17 PM REGISTERED MASSAGE THERAPIST Temperature 36.3 C (97.4 F) 10/17/2023 1:17 PM REGISTERED MASSAGE THERAPIST Respiratory Rate 18 10/17/2023 1:17 PM REGISTERED MASSAGE THERAPIST Oxygen Saturation 98% 10/17/2023 1:17 PM REGISTERED MASSAGE THERAPIST Inhaled Oxygen Concentration - - Weight 77.1 kg (170 lb) 10/17/2023 1:17 PM REGISTERED MASSAGE THERAPIST Height 162.6 cm (5' 4) 10/17/2023 1:17 PM REGISTERED MASSAGE THERAPIST Body Mass Index 29.18 10/17/2023 1:17 PM REGISTERED MASSAGE THERAPIST Plan of Treatment Health Maintenance Due Date Last Done Comments Hepatitis C Virus (HCV) Screening 1966 Mammogram 1966 TdaP Immunization 1966 Hepatitis B Immunization (1 of 3 - 19+ 3-dose series) 1985 Pap Smear 1987 Cervical Cancer Screening (CCS) 1996 HPV/Cotest 1996 Cologuard 2011 Colonoscopy 2011 Colorectal Cancer Screening 2011 Immunochemical Fecal Occult Blood 2011 Pneumococcal Immunization (5 0+ years) (1 of 1 - PCV) 2016 Zoster Immunization (1 of 2) 2016 Influenza Immunization (#1) 05/10/202510/2022, 06/19/2022 SARS-COV-2 Immunization ( - 2024- season) 2025 03/24/2021, 03/03/2021 Respiratory Syncytial Virus (RSV) Immunization (Adult) (1 - 1-dose 75+ series) 2041 Human Papillomavirus (HPV) Immunization Aged Out No longer eligible b ased on patient's age to complete this topic Meningococcal Immunization (ACWY) Aged Out No longer eligible b ased on patient's age to complete this topic Rotavirus Immunization Aged Out No lo nger eligible based on patient's age to complete this topic Insurance Care Teams Compliance Vice President Relationship Specialty Start Date End Date Jeremy Wilson MD PCP - General Internal Medicine 07/24/23 Mandy Dubose APRN, [employer]CR[employer] [address] [place] [address] Nurse Practitioner Advanced Practice Nurse 10/22/23
--- OUTSIDE RECORDS SUMMARY | 2025-07-19 01:30 | XMS_ITS | Data Portability ---
Author Organization [facility] [place] Address [address] [place] [address] [address] Care Team Providers Care Dental Ceramist Name Role Phone CORNEL QUEZADA Primary Care Provider [phone] Assessment Encounter Date Assessment Date Assessment LastModified by Organization Details LastModified Time 06/26/2022 06/26/2022 healthy female exam/menopaus e pap done mammogram ordered and encouraged colonoscopy due 2028 dexa baseline at 61 Encouraged weight bearing exercise and 1500mg daily of Calcium with Vitamin D FU 1year or prn [email or web address] Not available 06/26/2022 16:39:31 Plan of Treatment Reminders Order Date Submit Date Provider Last Modified By Organization Details Last Modified Time Details Appointments None recorded . Lab urinalys is, dipstick 2022 023 [email or web address] [place], [place], [address], 3 16:01:08 urinalys is, dipstick 2022 023 [email or web address] [place], [address], [place], [address], 14:08:48 Referral None recorded . Procedures None recorded . Surgeries None recorded . Imaging US, pelvis 2022 023 [email or web address] [place], [address], [place], [address], 3 21:59:57 US, transvag inal 2022 023 [email or web address] [place], [place], [address], 3 21:59:57 US, pelvis, complete 2022 023 [email or web address] [place], [address], [place], [address], 3 16:30:42 Medication Orders None recorded . Patient TargetsNo targets recorded. Patient InstructionsNo instructions recorded. Reason for Referral None Reported. Results Created Date Observation Date Name Description Value Unit Range Abnormal Flag Note LastModifiedBy Organization Detail LastModifiedTime 06/26/20 22 06/26/2022 IMAGE GUIDE D PAP AND HPV REGAR DLESS image guided Pap, HPV regardless of Pap result SEE RESULT S BELOW CASE REPOR T: Cytol ogy Gynec ologi soo Repor t Case: [id number] Autho isaac zeeshan Provi lila: Vicky Gonzales MD Colle cted: 06/26 1652 Order ing Locat ion: [place] [facility] Recei eva: 06/27 0805 First Scree n: Elayne Bowles, CT Speci men: Scree ericka Pap - Image d, Cervi x STATE MENT OF ADEQU ACY: Satis facto ry for evalu ation Trans forma tion zone compo nent canno t be defin itive ly ident ified due to the prese nce of atrop hy or other hormo nal min es Scant cellu larit y FINAL DIAGN OSIS: Negat jaye for Intra epith elial Deonte guerrero or Cathy whipple (NIL) . Atrop hic cell chris paulson. Elect júnior campoverde d by Elayne Bowles, CT on 07/01 at 7:31 AM ----- ----- ----- ----- ----- ----- ----- ----- ----- ----- ----- ----- ----- ----- ----- ----- ----- ---- HPV RESUL TS: HPV mRNA E6/E7 : No HPV mRNA Detec kayleigh NOTE: This high risk HPV mRNA assay detec ts fourt een high- risk HPV types (16, 18, 31, 33, 35, 39, 45, 51, 52, 56, 58, 59, 66, 68) witho ut diffe renti ation . COMME NT: Note: This speci men was revie wed by a Cytot echno logis t and/o r Patho logis t (as indic ated in this repor t) after evalu ation using the Thinp rep Imagi ng Syste m. CLINI SOO INFOR MATIO N: Menst rual Statu s: LMP (if appli cable ): Clini soo Histo ry/Pr eviou s Pap: Type of Neopl bulmaro (if appli cable ): Signi fican t Clini soo Findi ngs: Other Histo ry: Hormo nayeli (if appli cable ): PAP EDUCA SEBASTIÁN L NOTE: The Pap Test is a scree ericka test with an inher ent false negat jaye rate. Liqui d-bas ed sampl ing may decre ase, but will not elimi qi, false negat jaye resul ts. A negat jaye resul t does not precl ude the prese nce and/o r devel opmen t of disea se, since the prese nce of abnor mal cells in the sampl e depen ds on the locat ion of the lesio n and sampl ing techn ique. Jane nued regul ar scree ericka is the best metho d of cance r preve ntion . If repor kayleigh cytol ogic findi ng do not corre late with physi soo and/o r histo rical findi ngs, furth er inves tigat ion is recom karsten d, as clini greg barakat nted. Not Available [facility] [id number] [facility], [place], [address], 07/01/2022 08:33:55 11/13/19 23 11/12/2022 CULTU RE: URINE result report SEE RESULT S BELOW Test: Cultu re: Urine Speci men Sourc e: Urine Voide d Speci men Type: Urine Speci men Date: 023 2:00 PM Resul t Date: 023 5:52 AM Resul t Statu s: Final resul t Abnor mal: No Resul ting Lab: [facility] [address] [facility] [address] Tel: CULTU RE ----- ----- ----- --- No growt h in 1 day (dete ction level of 10,00 0 colon ies / ml.) Not Available [facility] (Lab) [address] [facility], [place], [address], 11/14/2022 06:56:13 11/13/19 23 11/12/2022 urina lysis , dipst ick Leukocytes trace Not Available [facility] javier [address], [place], [address], 11/12/2022 14:08:22 11/13/19 23 11/12/2022 urina lysis , dipst ick Nitrite neg Not Available [place] [address], [place], [address], 11/12/2022 14:08:22 11/13/19 23 11/12/2022 urina lysis , dipst ick Protein neg Not Available [place] [address], [place], [address], 11/12/2022 14:08:22 11/29/19 23 11/28/2022 CULTU RE: URINE result report SEE RESULT S BELOW Test: Cultu re: Urine Speci men Sourc e: Urine Voide d Speci men Type: Urine Speci men Date: 2022 4:20 PM Resul t Date: 2022 5:34 AM Resul t Statu s: Final resul t Abnor mal: No Resul true Lab: [facility] [address] [facility] [address] Tel: CULTU RE ----- ----- ----- --- No growt h in 1 day (dete ction level of 10,00 0 colon ies / ml.) Not Available [facility] (Lab) [address] [facility] [facility], [place], [address], 11/30/2022 06:38:30 11/29/19 23 11/28/2022 urina lysis , dipst ick Leukocytes neg Not Available [facility] [address], [place], [address], 11/28/2022 16:00:37 11/29/19 23 11/28/2022 urina lysis , dipst ick Nitrite neg Not Available [place] [address], [place], [address], 11/28/2022 16:00:37 11/29/19 23 11/28/2022 urina lysis , dipst ick Urobilinogen neg Not Available [facility] karl [address], [place], [address], 11/28/2022 16:00:37 11/29/19 23 11/28/2022 urina lysis , dipst ick Protein neg Not Available [place] [address], [place], [address], 11/28/2022 16:00:37 11/29/19 23 11/28/2022 urina lysis , dipst ick pH 5 Not Available [place] [address], [place], [address], 11/28/2022 16:00:37 11/29/19 23 11/28/2022 urina lysis , dipst ick Specific [place] 1.005 [facility] Available [facility] [address], [place], [address], 11/28/2022 16:00:37 11/29/19 23 11/28/2022 urina lysis , dipst ick Ketone neg Not Available [place] [address], [place], [address], 11/28/2022 16:00:37 11/29/19 23 11/28/2022 urina lysis , dipst ick Bilirubin neg Not Available [facility] omayra [address], [place], [address], 11/28/2022 16:00:37 11/29/19 23 11/28/2022 urina lysis , dipst ick Glucose neg Not Available [place] [address], [place], [address], 11/28/2022 16:00:37 11/29/19 23 11/28/2022 urina lysis , dipst ick Appearance clear Not Available [facility] javier [address], [place], [address], 11/28/2022 16:00:37 11/29/19 23 11/28/2022 urina lysis , dipst ick Color yelllo w Not Available [place] [address], [place], [address], 11/28/2022 16:00:37 07/31/20 22 07/31/2022 MAMMO , scree ericka, bilat eral No observ ation record ed. [email or web address] [place] [facility] [address], [place], [address], 04/04/2023 12:42:42 07/31/20 22 07/31/2022 MAMMO , scree ericka, bilat eral No observ ation record ed. ENRIQUE [place] [facility] [address], [place], [address], 12/02/2022 20:42:21 12/01/19 23 11/30/2022 US, pelvi s No observ ation record ed. [email or web address] [place] [address], [place], [address], 11/30/2022 17:20:58 12/01/19 23 11/30/2022 US, trans vagin al No observ ation record ed. [email or web address] [place] [address], [place], [address], 11/30/2022 17:20:50 12/01/19 23 11/30/2022 US, pelvi s No observ ation record ed. desmond Berman [address], [place], [address], 12/04/2022 09:11:33 Result Notes None recorded. Problems Name Problem SNOMED Code Status Onset Date Resolution Date Notes Provider Name and Address Organization Details Recorded Time Irritabl e bowel syndrome characte rized by constipa tion 201252131 Active Vicky Carvajal MD [address], [place], [address], [facility] 09:55:42 Screenin g for malignan t neoplasm of rectum Completed 201612/19/2020 Encounte r for screenin g for malignan t neoplasm of rectum;R ecorded Elsewher e: No Locat ion: [facility] S ource: EHR Impress Associate sia: N Practi ce ID: 0001 Javier lable Time: 01:00:00 PM Vicky Carvajal MD [address], [place], [address], [facility] 09:54:53 Menopaus e present 295587263 Active 2017 Menopaus al and female climacte derick states;R ecorded Elsewher e: No Locat ion: [facility] S ource: EHR Impress Associate sia: N Haroldoti ce ID: 0001 Javier lable Time: 11:15:00 AM Not Available [facility] Concept Completed 201712/19/2020 Encntr for lead care manager exam (general ) (routine ) w/o abn findings ;Recorde d Elsewher e: No Locat ion: [facility] S ource: EHR Impress Associate sia: N Haroldoti ce ID: 0001 Javier lable Time: 02:30:00 PM Vikcy Carvajal MD [address], [place], [address], [facility] 09:54:[address] Concept Completed 201712/19/2020 Encntr for general adult medical exam w/o abnormal findings ;Recorde d Elsewher e: No [facility]: EHR Impress Associate sia: N Eric ce ID: 0001 Javier lable Time: 02:30:00 PM Vicky Carvajal MD [address], [place], [address], [facility] 09:54:55 Acute vaginiti s 51514143 Completed 201812/19/2020 Acute vulvovag initis;R ecorded Elsewher e: No [facility]at [facility] S ource: EHR Impress Associate isa: N Eric ce ID: 0001 Javier lable Time: 02:00:00 PM Vicky Carvajal MD [address], [place], [address], [facility] 09:54:41 Urinary tract infectio us disease 42630335 Completed 201812/19/2020 UTI;David rded Elsewher e: No [facility]at [facility]: [facility] S ource: EHR Impress Associate sia: N Haroldoti ce ID: 0001 Javier lable Time: 02:00:00 PM Vicky Carvajal MD [address], [place], [address], [facility] 1 09:55:01 Pain Completed 201912/19/2020 Upper abdomina l pain;Rec orded Elsewher e: No Locat ion: [facility] S ource: EHR Impress Associate sia: N Practi ce ID: 0001 Javier lable Time: 08:45:00 AM Vicky Carvajal MD [address], [place], [address], [facility] 1 09:54:47 Lesion of ovary Completed 201912/19/2020 Other ovarian cyst, right side;Rec orded Elsewher e: No Locat ion: [facility] S ource: EHR Impress Associate sia: N Practi ce ID: 0001 Javier lable Time: 10:30:00 AM Vicky Carvajal MD [address], [place], [address], [facility] 1 09:55:25 Pelvic and perineal pain 373633442 Completed 201912/19/2020 Pelvic pain;Rec orded Elsewher e: No Locat ion: [facility] S ource: EHR Impress Associate sia: N Practi ce ID: 0001 Javier lable Time: 11:15:00 AM Vicky Carvajal MD [address], [place], [address], [facility] 1 09:54:50 Lesion of ovary Completed 201912/19/2020 Other ovarian cyst, unspecif ied side;Rec orded Elsewher e: No Locat ion: [facility] S ource: EHR Impress Associate sia: N Practi ce ID: 0001 Javier lable Time: 11:15:00 AM MD [address], [place], [address], [facility] 1 09:54:44 Cyst of right ovary [id number] 1516068 Active 2019 Vicky Carvajal MD [address], [place], [address], [facility] 1 09:55:22 Uterine leiomyom a 07453680 Active 2020 Vicky Carvajal MD [address], [place], [address], [facility] 1 09:58:23 Problem Notes None recorded. Procedures Surgical History Date Name Laterality Status Provider Name and Address Organization Details Recorded Time 06/20/20 21 Date of Last Mammogram completed Chelsea Longo [facility] 06/06/2022 09:41:44 09/24/19 20 Date of Last Pap Smear completed Janel Hunt [facility] 03/03/2020 16:25:26 09/09/19 19 Orthopedic Surgery completed Janel Hunt [facility] 03/03/2020 16:31:06 09/09/19 18 [facility] 16:29:13 09/09/19 18 [facility] 16:32:14 02/08/20 17 Other completed Janel Hunt [facility] 03/03/2020 16:29:48 12/09/19 17 Other completed Janel Hunt [facility] 03/03/2020 16:29:57 09/09/19 06 cholecystectomy completed Janel Hunt [facility] 03/03/2020 16:31:54 09/09/18 94 endoscopy completed Janeljake Hunt [facility] 03/03/2020 16:29:24 09/09/18 93 [facility]2020 16:29:33 07/19/19 91 ligation of bilateral fallopian tubes completed [facility] 03/03/2020 16:29:02 09/09/18 84 Hysteroscopy completed [facility] 03/03/2020 16:31:38 Imaging Results None recorded. Procedure Notes None recorded. Medical Equipment None Reported. Allergies No known drug allergies Medications Name Sig Start Date Stop Date Status Note LastModified by Organization Details LastModified Time cyclobenz aprine 10 mg tablet TAKE 1 TABLET BY MOUTH THREE TIMES A DAY FOR 14 DAYS NEEDED 06/06 completed Not Available Not Available Not Available fluconazo le 100 mg tablet TAKE 1 TABLET BY MOUTH DAILY FOR 7 DAYS 06/06 completed Not Available Not Available Not Available paroxetin e 10 mg tablet TAKE 1 TABLET BY MOUTH EVERY DAY IN THE MORNING active Not Available Not Available No t Available trazodone 50 mg tablet TAKE 1 TABLET BY MOUTH EVERY DAY 06/06 completed Not Available Not Available Not Available azithromy pedro 250 mg tablet 01/03 completed Not Available Not Available Not Available aspirin 325 mg tablet take 1 tablet by oral route every day 04/04 completed Prescrib thu cutler: Yes [facility] odify By: amkuhcynthia Cutler ncolyner DateTime : 07/02/20 17 01:00:00 PM Not Available Not Available Not Available tizanidin e 4 mg tablet TAKE 1 TABLET BY MOUTH TWICE A DAY NEEDED FOR MUSCLE SPASMS 06/06 completed Not Available Not Available Not Available fluconazo le 150 mg tablet TAKE 1 TABLET BY MOUTH EVERY DAY ONE DOSE 11/28 completed Not Available Not Available Not Available benzonata te 200 mg capsule TAKE 1 CAPSULE BY MOUTH THREE TIMES A DAY active Not Available Not Available No t Available lisinopri l 20 mg tablet TAKE 1 TABLET BY MOUTH EVERY DAY active Not Available Not Available No t Available gabapenti n 400 mg capsule TAKE 1 CAPSULE BY MOUTH EVERY DAY 06/06 completed Not Available Not Available Not Available Zoloft 20 mg/mL oral concentra te take 2.5 millilit er by oral route every day and mix with 4 oz. (/2 cup) of water, terri eliazar, lemon/li me soda, lemonade or orange juice ONLY 10/23 completed Prescrib ed Elsewher e: Yes Loca tion: Ramya cutler [facility] odify By: quirino martinez DateTime : 08/15/20 18 02:30:00 PM Not Available Not Available Not Available Pyridium 200 mg tablet take 1 tablet by oral route 3 times every day after meals 04/09 completed Prescrib ed Elsewher e: No Locat ion: Ramya cutler [facility] odify By: león Cutler ncounter DateTime : 11/19/19 19 02:00:00 PM Not Available Not Available Not Available sulfameth oxazole 800 mg-trimet hoprim 160 mg tablet TAKE 1 TABLET BY MOUTH TWICE A DAY FOR 10 DAYS 06/06 completed Not Available Not Available Not Available tramadol 50 mg tablet TAKE 1-2 TABLETS BY MOUTH TWICE DAILY NEEDED FOR PAIN 06/06 completed Not Available Not Available Not Available Prevacid 30 mg capsule,d elayed release take 1 capsule by oral route every day before a meal 10/23 completed Prescrib ed Elsewher e: Yes Loca tion: Ramya cutler [facility] odify By: quirino martinez DateTime : 07/02/20 17 01:00:00 PM Not Available Not Available Not Available meloxicam 7.5 mg tablet take 1 tablet by oral route every day 05/05 completed Prescrib ed Elsewher e: Yes Loca tion: Ramya cutler [facility] odify By: león Cutler ncounter DateTime : 04/04/20 18 11:00:00 AM Not Available Not Available Not Available Metrogel Vaginal 0.75 % (37.5 mg/5 gram) insert 1 applicat orful by vaginal route for 5 nights at bedtime 11/18 completed Prescrib ed Elsewher e: No Locat ion: Ramya cutler [facility] odify By: brandie Cutler ncounter DateTime : 11/03/19 19 10:58:43 AM Not Available Not Available Not Available pantopraz ole 40 mg tablet,de layed release TAKE 1 TABLET BY MOUTH EVERY DAY active Not Available Not Available No t Available lisinopri l 10 mg tablet TAKE 1 TABLET BY MOUTH EVERY DAY active Not Available Not Available No t Available Advair Diskus 250 mcg-50 mcg/dose powder for inhalatio n INHALE 1 PUFF BY MOUTH TWICE A DAY active Not Available Not Available No t Available diclofena c sodium 25 mg tablet,de layed release take 1 tablet by oral route 3 times every day 10/23 completed Prescrib ed Elsewher e: Yes Loca tion: [facility] odify By: quirino Daven[address] ter DateTime : 04/09/20 19 09:30:00 AM Not Available Not Available Not Available gabapenti n 300 mg capsule TAKE 1 CAPSULE BY MOUTH TWICE A DAY active Not Available Not Available No t Available sertralin e 25 mg tablet take 1 tablet by oral route every day 01/01 completed Prescrib ed Elsewher e: No Locat ion: [facility] odify By: quirino [address] ter DateTime : 08/21/20 18 02:24:37 PM Not Available Not Available Not Available lisinopri l 5 mg tablet TAKE 1 TABLET BY MOUTH DAILY 06/06 completed Not Available Not Available Not Available gabapenti n 100 mg capsule TAKE 1 CAPSULE BY MOUTH THREE TIMES A DAY 12/13 completed Not Available Not Available Not Available ergocalci ferol (vitamin D2) 1,250 mcg (50,000 unit) capsule TAKE 1 CAPSULE BY MOUTH ONE TIME PER WEEK FOR 90 DAYS active Not Available Not Available No t Available clobetaso l 0.05 % topical ointment 06/06 completed Not Available Not Available Not Available lorazepam 1 mg tablet TAKE 1 TABLET BY MOUTH TWICE A DAY NEEDED FOR NERVOUSN ESS 06/06 completed Not Available Not Available Not Available levofloxa pedro 500 mg tablet TAKE 1 TABLET BY MOUTH ONCE DAILY AFTER A MEAL FOR 8 DAYS 12/13 completed Not Available Not Available Not Available albuterol sulfate HFA 90 mcg/actua tion aerosol inhaler TAKE 1 2 PUFFS BY MOUTH 3 TIMES DAILY active Not Available Not Available No t Available paroxetin e ER 12.5 mg tablet,ex tended release 24 hr Take 1 tablet every day by oral route. 03/03 completed Not Available Not Available Not Available nitrofura ntoin monohydra te/macroc rystals 100 mg capsule TAKE 1 CAPSULE BY MOUTH EVERY 12 HOURS FOR 7 DAYS 11/28 completed Not Available Not Available Not Available duloxetin e 60 mg capsule,d elayed release TAKE 1 CAPSULE BY MOUTH EVERY DAY 06/06 completed Not Available Not Available Not Available Cymbalta 30 mg capsule,d elayed release take 1 capsule by oral route 3 times every day 04/04 completed Prescrib ed Elsewher e: Yes [facility] By: león Cutler ncounter DateTime : 07/02/20 01:00:00 PM Not Available Not Available Not Available Clindesse 2 % vaginal cream,ext ended release insert by Vaginal route for 1 bedtime 04/09 completed Prescrib ed Elsewher e: No [facility] odify By: león Cutler ncounter DateTime : 11/21/19 09:56:38 AM Not Available Not Available Not Available lorazepam 12/13 completed Not Available Not Available Not Available lisinopri l 12/13 completed Not Available Not Available Not Available Protonix 12/13 completed Not Available Not Available Not Available Protonix 40 mg granules delayed-r elease packet take 1 packet by oral route every day mixed in 1 teaspoon ful of applesau ce or apple juice 12/13 completed Prescrib ed Elsewher e: Yes [facility]oca [facility] odify By: quirino marie Encoun ter DateTime : 10/23/19 08:45:00 AM Not Available Not Available Not Available lisinopri l (bulk) 100 % powder 12/13 completed Prescrib ed Elsewher e: Yes Loca tion: [facility] odify By: quirino marie Encoun ter DateTime : 10/23/19 08:45:00 AM Not Available Not Available Not Available Linzess 145 mcg capsule TAKE 1 CAPSULE BY MOUTH DAILY 30 MINUTES BEFORE THE 1ST MEAL OF THE DAY active Not Available Not Available No t Available Linzess 12/13 completed Not Available Not Available Not Available Gynazole- 1 2 % vaginal cream insert 1 applicat orful by vaginal route once 10/23 completed Prescrib ed Elsewher e: No Locat ion: Ramya cutler [facility] odify By: quirino martinez DateTime : 04/09/20 09:30:00 AM Not Available Not Available Not Available Durlaza 162.5 mg capsule,e xtended release take 1 capsule by oral route every day at the same time each day 04/09 completed Prescrib ed Elsewher e: Yes Loca tion: [facility] odify By: león moeller DateTime : 08/15/20 02:30:00 PM Not Available Not Available Not Available Linzess 72 mcg capsule take 1 capsule by oral route every day on an empty stomach at least 30 minutes before 1st meal of the day 12/13 completed Prescrib ed Elsewher e: Yes Loca tion: [facility] odify By: milton moeller DateTime : 11/05/19 11:15:00 AM Not Available Not Available Not Available Vitals Date Recorded Body height Systolic And Diastolic Provider Name and Address Organization Details Last Updated DateTime 11/28/2022 163.83 cm 116/72 mm[Hg] Edita Kang [facility] 11/28/2022 15:16:23 Date Recorded Body height Body mass index (BMI) Body weight Systolic And Diastolic Systolic And Diastolic Provider Name and Address Organization Details Last Updated DateTime 06/26/2022 163.83 cm 30.4 kg/m2 34296.63 g 160/91 mm[Hg] 150/70 mm[Hg] Chelsea Longo [facility] 16:16:50 Social History Question Answer Notes LastModified by Organizat ion Details LastModified Time Tobacco Smoking Status Former Smoker Ramiro valdes [facility] 12/03/2022 16:35:51 Are You Blind Or Do You Have Difficulty Seeing? No Information not available 11/28/2022 Are You Deaf Or Do You Have Serious Difficulty Hearing? No Information not available 11/28/2022 What Was The Date Of Your Most Recent Tobacco Screening? 03/03/2020 [email or web address] Information not available 12/03/2022 Do You Have Difficulty Walking Or Climbing Stairs? No Information not available 12/03/2022 Sex: Unknown Functional Status Question Answer Note LastModified by Organizat ion Details LastModified Time What is your level of alcohol consumption? Occasional [email or web address] Information not available 03/03/2020 Are you able to walk independently without assistance or assistive devices? [email or web address] Information not available 11/28/2022 Are you able to care for yourself independently? Yes [email or web address] Information not available 12/03/2022 Do you have difficulty dressing, bathing, grooming, or toileting? No [email or web address] Information not available 12/03/2022 What is your exercise level? Occasional [email or web address] Information not available 03/03/2020 Mental Status None recorded. Family History Relationship Description Onset Age of this Age Resolved Age Notes LastModified by Organization Details LastModified Time Mother Family history of breast cancer [email or web address] Not available 2022 16:35:50 Mother Diabetes mellitus [email or web address] Not available 2021 15:57:39 Mother Hypertensive disorder [email or web address] Not available 2021 15:57:39 Father Diabetes mellitus [email or web address] Not available 12/25/2019 18:02:46 Father Hypertensive disorder Not available 2021 15:57:39 Father Congenital heart disease [email or web address] Not available 2022 16:35:50 Brother Diabetes mellitus Not available 2021 15:57:39 Brother Hypertensive disorder [email or web address] Not available 2021 15:57:39 Maternal Grandmother Congenital heart disease [email or web address] Not available 2022 16:35:50 Paternal Grandmother Congenital heart disease [email or web address] Not available 2022 16:35:50 Notes:Brother: Diabetes nahed itus, Hypertension Father: Congenital heart disease, Diabetes mellitus, Hypertension Maternal grandmother: Congenital heart disease Mother: Cancer, breast, Hypertension, Diabetes mellitus Paternal grandmother: Congenital heart disease Medical History Condition Response Anxiety Disorder Y Diabetes Y Other Y Hypertension Y Asthma Y Gynecological History Statement/Question Response Date of Last Pap Smear 09/24/2019 Current Control Method Tubal Ligat ion Date of Last Mammogram 06/20/2021 Date of LMP 06/09/2017 LMP Approximate Obstetrics History GPAL:G 4 P 3 0 1 3 Type Value Full Term 3 Spontaneous 1 Living 3 Total 4 Past Encounters Encounter ID Performer Location Encounter Start Date Encounter Closed Date Diagnosis/Indication Diagnosis SNOMED-CT Code Diagnosis ICD10 Code Diagnosis IMO Codes Diagnosis Note [id number] Viviana Connell MD [facility] [address] [address] 03/03/2020 16:21:09 03/03/2020 16:49:53 Cyst of right ovary 9207750852 1908267 N83.201 We discussed options including surgical therapy or continued expectant management . We again discussed the only way to know 100% if the cyst is benign or not is to remove it for pathologic evaluation , but the suspicion for malignancy is low. She wants to watch and wait and would like to repeat U/S in 6 months. I advised her to call if worsening pain, vaginal bleeding, unusual discharge, or any other concerning symptoms. She expressed understand ing and agrees Uterine leiomyoma 091576 05 D25.9 We discussed that fibroids are almost always benign adn require no treatment since she's not bleeding and having minimal pain Menopausal symptom 70747 002 N95.1 We discussed options including HRT or Paxil or Effexor. She prefers to avoid hormones due to mother's h/o breast cancer. She agrees to try Paxil so written rx given since Internet was down while she was in office. 3 month rx with 1 refill given [id number] Ludwin Hernandez MD [facility] [address] [address] 03/03/2020 16:23:12 03/07/2020 16:18:47 Uterine leiomyoma 69296232 D25.9 N83.291 [id number] Vicky Carvajal MD [place] [address] [address] 12/13/2020 14:15:07 12/13/2020 15:21:05 Cyst of right ovary [id number] N83.291 [id number] Vicky Carvajal MD [facility] [address],[place] [address] 12/13/2020 14:15:38 12/13/2020 22:45:14 Cyst of right ovary [id number] N83.291 Uterine leiomyoma 599344 05 D25.9 [id number] Vicky Carvajal MD [place] [address],[place] [address] 01/03/2021 15:02:56 01/03/2021 15:44:46 Gynecologic examination 56439109 Z01.419 [id number] Vicky Carvajal MD [place] [address],[place] [address] 06/26/2022 15:55:56 06/26/2022 17:40:05 Gynecologic examination 64718796 Z01.419 [id number] ASIA Michael [place] [address],[place] [address] 11/12/2022 13:51:23 11/12/2022 18:01:49 Pain in pelvis 47282627 R10.2 [id number] ASIA Michael [place] [address],[place] [address] 11/28/2022 14:31:10 11/28/2022 16:35:30 Pain in pelvis 64726180 R10.2 This patient is a 57 -year-old female with pelvic pain. We have agreed to complete the evaluation with pelvic ultrasound . The patient will return after the pelvic ultrasound to discuss those findings and to develop a treatment plan. A comprehens jaye history and physical exam was performed today. We spent over 25 minutes face-to-fa ce. The patient was given precaution s. She will contact clinic if pelvic pain increases in frequency or intensity. Also notify clinic of any new symptoms associated with pelvic pain. She does not appear to have an acute pelvic infection today, but was asked to contact us Immediatel y with nausea, vomiting, fever, chills. will update TVUSSTI testing declinedRe peat urine culture sent, UA normalRTC for TVUS and pelvic u/s f/u Urinary symptoms 0737545 08 R39.9 [id number] Ludwin Hernandez MD [place] [address] [address] 11/30/2022 15:15:12 11/30/2022 16:16:08 Pain in pelvis 57397021 R10.2 [id number] ASIA Michale [place] [address] [address] 12/03/2022 16:35:44 12/04/2022 11:42:10 Pain in pelvis 53193961 R10.2 today we reviewed updated TVUS - fibroid uterus, normal appearing ovariesWe discussed her IBS-C, agreed that likely some or most of her pain may be GI in nature - bowel movements have been very irregular. Offered GI referral, declined. She would like to f/u with her PCP at this time. We discussed MD consult for further discussion /managemen t of pelvic pain, declined. She will f/u with her PCP and let us know if she would like to pursue MD consult. Time spent in visit is a total of 25 mins with at least 50% of visit consisting of counseling and review of plan of care. Abdominal pain [id number] R10.9 Health Concerns Section Related Observation LastModified by Organization Detai ls LastModified Time None Recorded Concern Status LastModified by Organization Details LastModified Time None Recorded Advance Directives Directive None Recorded Payers Insurance Date Sequence Insurance Name Policy Number Policy Linda Covered Member ID Linda Member ID Guarantor Name 12/03/2022 1 [facility] ([facility] [id number] Jas Wilkes [id number] Jas Wilkes Notes Date Note Type Note Provider Name and Address Organization Details Recorded Time 2 text/html Patient is a 56yo who presents for an annual exam. Menopause 2019. NO bleeding.last pap-09/2019 NILMmammo-1colono scopy-2019- yearsdexa-nonesexually jzibue-ujqevroafxan-qka mcceav-clwwhyegjwd-duhp esdomestic violence-deniestobacco- nconcerns-none Vicky Carvajal MD [address], [place], [address], [facility] 06/26/2022 16:40:26 3 text/html 57yoPresents for evaluation of pelvic painsymptoms started 1-2 months agoBilateral pelvic cramping sensation that comes and goesPostmenopausal since 2017, no bleeding sinceNot currently SATreated for a UTI, culture was negative. Symptoms did not improveShe has IBS-C, bowel movements often irregularDenies any vaginal itching, discharge, n/v/f, or flank pains ASIA Michael [address], [place], [address], [facility] 11/28/2022 16:06:51 3 text/html 57 yo presents for u/s f/u Presents for evaluation of pelvic painsymptoms started 1-2 months agoBilateral pelvic cramping sensation that comes and goesPostmenopausal since 2017, no bleeding sinceNot currently SATreated for a UTI, culture was negative. Symptoms did not improve. Had repeat (-) urine culture.She has IBS-C, bowel movements often irregularDenies any vaginal itching, discharge, n/v/f, or flank pains ASIA Michael [address], [place], [address], [facility] 12/04/2022 09:20:28 OBGyn Episode Ob Episode Information Episode Created Date Number of Fetuses Patient Bloodtype Patient rh Status Prepregnancy Weight lbs Domestic Partner Domestic Partner Phone Father Name Chrome Plater Helper Status 03/03/20 20 1 CLOSED Fetus Data First Name Last Name Admitted to NICU Weight (g) Sex Living Outcome Pediatric Complications Fetus ID Race Codes Race Delivery Type Full Term [id number] Vaginal Delivery Russell Calculation Initial Russell Date Initial Exam Date Initial Exam Provider Initial Ultrasound Date Last Menstrual Period Date Ultra Sound Weeks Gestation 0 Eighteen To Twenty Week Russell Update Ultra Sound Date Fundal Height At Umbil Quickening Date Ultra Sound Latest Weeks Gestation Final Russell Confirmed By Final Russell Confirmed Date Final Russell Date Ultra Sound Latest Days Gestation 0 0 Menstrual History Last Menstrual Date Menses Monthly On Bcp Conception Prior Menses Frequency Hcg Plus Date Menarche Onset Age Delivery Information Delivery Date Delivery Type Labor Anesthesia Weeks Gestation Incision Type Labor Labor Length Hrs Delivered By Post Complications Tubal Sterilization Discharge Date Comments 7 Discharge Information Feeding Method Contraceptive Method Maternal HG B and HCT Levels Ob Episode Information Episode Created Date Number of Fetuses Patient Bloodtype Patient rh Status Prepregnancy Weight lbs Domestic Partner Domestic Partner Phone Father Name Chrome Plater Helper Status 03/03/20 20 1 CLOSED Fetus Data First Name Last Name Admitted to NICU Weight (g) Sex Living Outcome Pediatric Complications Fetus ID Race Codes Race Delivery Type Full Term [id number] Vaginal Delivery Russell Calculation Initial Russell Date Initial Exam Date Initial Exam Provider Initial Ultrasound Date Last Menstrual Period Date Ultra Sound Weeks Gestation 0 Eighteen To Twenty Week Russell Update Ultra Sound Date Fundal Height At Umbil Quickening Date Ultra Sound Latest Weeks Gestation Final Russell Confirmed By Final Russell Confirmed Date Final Russell Date Ultra Sound Latest Days Gestation 0 0 Menstrual History Last Menstrual Date Menses Monthly On Bcp Conception Prior Menses Frequency Hcg Plus Date Menarche Onset Age Delivery Information Delivery Date Delivery Type Labor Anesthesia Weeks Gestation Incision Type Labor Labor Length Hrs Delivered By Post Complications Tubal Sterilization Discharge Date Comments 9 Discharge Information Feeding Method Contraceptive Method Maternal HG B and HCT Levels Ob Episode Information Episode Created Date Number of Fetuses Patient Bloodtype Patient rh Status Prepregnancy Weight lbs Domestic Partner Domestic Partner Phone Father Name Chrome Plater Helper Status 03/03/20 20 1 CLOSED Fetus Data First Name Last Name Admitted to NICU Weight (g) Sex Living Outcome Pediatric Complications Fetus ID Race Codes Race Delivery Type , Spontane ous [id number] Russell Calculation Initial Russell Date Initial Exam Date Initial Exam Provider Initial Ultrasound Date Last Menstrual Period Date Ultra Sound Weeks Gestation 0 Eighteen To Twenty Week Russell Update Ultra Sound Date Fundal Height At Umbil Quickening Date Ultra Sound Latest Weeks Gestation Final Russell Confirmed By Final Russell Confirmed Date Final Russell Date Ultra Sound Latest Days Gestation 0 0 Menstrual History Last Menstrual Date Menses Monthly On Bcp Conception Prior Menses Frequency Hcg Plus Date Menarche Onset Age Delivery Information Delivery Date Delivery Type Labor Anesthesia Weeks Gestation Incision Type Labor Labor Length Hrs Delivered By Post Complications Tubal Sterilization Discharge Date Comments 4 Discharge Information Feeding Method Contraceptive Method Maternal HG B and HCT Levels Ob Episode Information Episode Created Date Number of Fetuses Patient Bloodtype Patient rh Status Prepregnancy Weight lbs Domestic Partner Domestic Partner Phone Father Name Chrome Plater Helper Status 03/03/20 20 1 CLOSED Fetus Data First Name Last Name Admitted to NICU Weight (g) Sex Living Outcome Pediatric Complications Fetus ID Race Codes Race Delivery Type Full Term 2528 Vaginal Delivery Russell Calculation Initial Russell Date Initial Exam Date Initial Exam Provider Initial Ultrasound Date Last Menstrual Period Date Ultra Sound Weeks Gestation 0 Eighteen To Twenty Week Russell Update Ultra Sound Date Fundal Height At Umbil Quickening Date Ultra Sound Latest Weeks Gestation Final Russell Confirmed By Final Russell Confirmed Date Final Russell Date Ultra Sound Latest Days Gestation 0 0 Menstrual History Last Menstrual Date Menses Monthly On Bcp Conception Prior Menses Frequency Hcg Plus Date Menarche Onset Age Delivery Information Delivery Date Delivery Type Labor Anesthesia Weeks Gestation Incision Type Labor Labor Length Hrs Delivered By Post Complications Tubal Sterilization Discharge Date Comments 1 Discharge Information Feeding Method Contraceptive Method Maternal HG B and HCT Levels
--- OUTSIDE RECORDS SUMMARY | 2025-07-19 01:30 | XMS_ITS | Data Portability ---
Author Organization MD - [facility] [employer], Main Office Address [address] [place] [address] Assessment No assessment recorded. Plan of Treatment Reminders Order Date Submit Date Provider Last Modified By Organization Details Last Modified Time Details Appointments None recorded. Lab CMP, serum or plasma 2024 [facility] [address] [place], [address], 5 08:44:37 TSH, serum or plasma 2024 025 [email or web address] 5 [facility] (Lab), [address] [place], [address], 5 09:04:11 BMP, serum or plasma [email or web address] (Lab), [address] [place], [address], 5 17:29:15 CBC w/ auto diff [address] (Lab), [address] [place], [address], 5 17:29:15 lipid panel, serum [address] (Lab), [address] [place], [address], 5 17:29:15 glycohemogl obin, total, blood [address] (Lab), [address] [place], [address], 17:29:16 Referral nephrologis t referral - Please call patient to schedule an appointment . Thank you. 2024 025 [email or web address] Wing Doe DO, [address] [facility], [address], [place], [address], 5 18:04:53 Procedures colonoscopy screening (PROC) 2024 025 [facility] (Pre-Screen), [address] [place], [address], 13:22:05 Surgeries None recorded. Imaging XR, sacrum + coccyx - Tailbone injury 2024 025 [facility] (One Call Scheduling), [address] [place], [address], 5 17:31:08 Medication Orders metronidazo le 500 mg tablet 2024 025 [facility]/Pharmacy #[id number], [address] , [place], [address], 5 05:02:18 rosuvastati n 5 mg tablet 2024 025 que Husain [facility]/Pharmacy #[id number], [address], [place], [address], 5 12:47:18 Linzess 290 mcg capsule 2024 025 [facility]/Pharmacy #[id number], [address], [place], [address], 5 14:34:56 fluticasone 250 mcg-salmete rol 50 mcg/dose blistr powdr for inhalation 2024 025 [facility]/Pharmacy #[id number], [address], [place], [address], 14:34:57 pantoprazol e 40 mg tablet,maribell yed release 2024 025 [id number], [address], [place], [address], 14:34:57 lisinopril 20 mg tablet 2024 025 [facility]/Pharmacy #[id number], [address] [place], [address], 14:34:57 paroxetine 20 mg tablet 2024 025 [id number] [address] [place], [address], 14:34:57 Sutab 1.479-0.188 -0.225 gram tablet 2024 025 [email or web address] 5 [facility], [address] [place] [address], [id number], 14:20:00 ondansetron 4 mg disintegrat ing tablet 2023 024 [email or web address] 52 [facility]/Pharmacy #[id number], [address], [place], [address], 09:40:17 Diflucan 150 mg tablet 2023 024 [email or web address] [facility]/Pharmacy #[id number], [address] [place], [address], 5 14:19:50 ciprofloxac in 500 mg tablet 2023 024 [email or web address] 5 [facility]/Pharmacy #[id number], [address] [place], [address], 12:12:46 metronidazo le 500 mg tablet 202306 024 [facility]/Pharmacy #[id number], [address], [place], [address], 05:02:18 Patient TargetsNo targets recorded. Patient Instructions Encounter Date Encounter Id Patient Instructions Last Modified By Organization Details Last Modified Time 09/30/2024 [id number] VINEET [email or web address] Not available 14:19:42 PT WITH ACUTE DIVERTICULITIS . SX IS X 7 WEEKS AGO . RECOMMEND A COLONOSCOPY PER PROTOCOL. . Risks benefits and complications were explained to the pt. ( BLEEDING PERFORATION , INFECTION , ). PT VERBALIZES UNDERSTANDING AND IS WILLING TO PROCEDE . [email or web address] Not available 09/30/2024 14:20:32 01/20/2025 [id number] Discussed medication compliance and routine follow up. Discussed healthy diet and routine exercise. Reviewed vaccine records and made recommendations as needed. Encouraged annual eye and dental exams, as well as twice yearly dental cleanings. Will check screening labs as listed below. Not available 01/20/2025 14:41:48 Will notify of x ray results. Take OTC tylenol for pain/ use cushion for sitting at this time for comfort. [email or web address] Not available 01/20/2025 14:44:49 01/25/2025 [id number] Advised to min e diet and exercise at this time. Provided handouts on diet change. Discussed importance of cholestrol management due to risks and family history. Avoid use of NSAIDs due to kidney condition. Use tylenol for pain or discomfort. [email or web address] Not available 01/25/2025 16:39:07 Diet and exercis e Discussed Lab results at this time. [email or web address] Not available 01/25/2025 16:38:37 05/14/2025 [id number] Discussed the importance of antibiotic therapy compliance. Patient needs to take medication as prescribed, including completing entire course even if symptoms improve/resolve. Discussed possible side effects of medication. Instructed patient to take medication with food to prevent stomach upset and increase daily water intake. Patient will follow up in 3-4 days if symptoms are not improving or worsen while taking antibiotics. [email or web address] Not available 05/14/2025 16:03:37 Please call offi ce with questions or concerns, or if symptoms do not improve. 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 Thank you. Referring Physician: Tanisha Salcido, Internal Medicine, Encounter Date: 01/25/2025 Results Created Date Observation Date Name Description Value Unit Range Abnormal Flag Note LastModifiedBy Organization Detail LastModifiedTime 08/12/20 24 08/05/2024 CT, abdom en + pelvi s, w/ contr ast No observ ation record ed. BARCODE Not Available 2023 11:57:21 01/21/2001/20/2025 XR, sacru m + coccy x No observ ation record ed. [email or web address] [facility] [address] [place], [address], 01/25/2025 12:23:05 Result Notes None recorded. Problems Name Problem SNOMED Code Status Onset Date Resolution Date Notes Provider Name and Address Organization Details Recorded Time Gastroeso phageal reflux disease 693655706 Active 2021 Not Available [employer] 3 12:45:13 Chronic constipat ion 011258132 Active 2021 Not Available [employer] 3 12:45:13 Neuropath y 300117356 Active 2021 Not Available [facility] 3 12:45:13 Osteoarth ritis 872909314 Active 2021 Not Available [facility] 3 12:45:14 Obesity 129501541 Active 2021 Not Available [facility] 3 12:45:14 Anxiety 15910462 Active 2021 Not Available [facility] 3 12:45:14 Hyperlipi demia 02520497 Active 2021 Tanisha Salcido, MARICRUZ-Tammy [address] [facility], [facility] [address], [place], [address] , [employer] 5 15:53:25 Essential hypertens ion 07031392 Active 2021 Not Available [facility] 3 12:45:14 Vitamin D deficienc y 21220645 Active 2021 Not Available [facility] 3 12:45:13 Cough 77736017 Completed 202108/29/2022 Not Available [facility] 3 12:45:14 Asthma 504090531 Active 2022 JEN Kirk [address], [address], [place], [address] , [facility] 5 12:15:01 Irritable bowel syndrome 15528605 Active 2022 Jeremy Wilson MD [address], [address], [place], [address] , [facility] 4 16:28:58 Depressiv e disorder 83884793 Active 2022 Jeremy Wilson MD [address], [address], [place], [address] , [facility] 4 16:28:03 Insomnia 874372622 Active 2022 Jeremy Wilson MD [address], [address], [place], [address] , [employer] [facility] 4 16:27:57 Postconcu ssion syndrome 75932900 Active 2022 Jeremy Wilson MD [address], [address], [place], [address] , [employer] 4 16:28:53 Hypertrig lyceridem ia 138103332 Active 2023 Jeremy Wilsno MD [address], [address], [place], [address] , [employer] 4 16:30:53 Chronic obstructi ve pulmonary disease 77752791 Active 2023 JEN Kirk [address], [address], [place], [address] , [place] [facility] 5 12:15:41 Sleep apnea 76397221 Active 2023 JEN Kirk [address], [address], [place], [address] , [place] [facility] 5 12:15:19 Chest pain 92097565 Active 2023 Jeremy Wilson MD [address], [address], [place], [address] , [place] [facility] 4 16:42:46 Low back pain 270726619 Active 2023 Clotilde Diallo NP [address], [address], [place], [address] , [place] [facility] 4 15:51:46 Pain of hip region 11340040 Active 2023 Clotilde Diallo NP [address], [address], [place], [address] , [place] [facility] 4 15:51:57 Pain of bilateral hip joints 08290348732 837790 Active 2023 Pratima guerrero, RMA null, [place] [facility] 4 17:58:47 Arthritis of left hip 89177722336 42937 Active 2023 Jeremy Wilson MD [address], [address], [place], [address] , [place] [facility] 4 15:55:20 Arthritis of right hip 46161162517 63042 Active 2023 Jeremy Wilson MD [address], [address], [place], [address] , [place] [facility] 4 15:55:34 Diverticu litis 096263060 Active 2023 JEN Kirk [address], [address], [place], [address] , [facility] 5 15:16:49 Diverticu litis of colon 462224399 Active 2024 Mala Henderson MD [address], [address] [address], [place], [address] , [facility] 5 14:41:27 Diverticu losis of colon 345010592 Active 2024 Wendy Reid LPN null, [facility] 5 14:43:29 Pain in coccyx 70613406 Active 2024 JEN Kirk [address], [address], [address] , [facility] 5 14:04:19 Acid reflux 518440231 Active 2024 JEN Kirk [address], [address], [address] , [facility] 5 14:34:32 Chronic kidney disease stage 3B 952587369 Active 2024 JEN Kirk [address] [facility], [address] , [facility] 5 09:04:27 Spasm 38488606 Active 2024 JEN Kirk [address] [facility] [address], [address] , [facility] 5 15:25:16 Problem Notes Documentation Provider Name and Address Organization Details Recorded Time Gastroenterology Note : [facility] [address] [address]UHQANK, Tonya D (id #[id number], : 1965) [facility] [address] [address] Encounter Summary - Progress Note Date Printed: 09/30/2024 Documents sent via fax will include the followingmessage: This fax may contain sensitive and confidential personal health information that is being sent for the sole use of the intended recipient. Unintended recipients are directed to securely destroy any materials received. You are hereby notified that the unauthorized disclosure or other unlawful use of this fax or any personal health information is prohibited. To the extent patient information contained in this fax is subject to 42 CFR Part 2, this regulation prohibits unauthorized disclosure of these records. If you received this fax in error, please visit [email or web address] to notify the sender and confirm that the information will be destroyed. If you do not have internet access, please call to notify the sender and confirm that the information will be destroyed. Thank you for your attention and cooperation. [ID:[id number]] Patient Rama Wilkes (59yo, F) #[id number] 1965 Patient Demographics: Address [address] [place], [place] [address] Work Phone Encounter Notes: Encounter Reason/Date Diverticulitis of colon 09/30/2024 - 01:30PM - [facility] General Surgery History of Present IllnessRAMA WAS SEEN IN THE OFFICE TODAY FOR EVALUATION .PT C/O ABD PAIN AND WAS SEEN IN THE ER ON 08/05. CT ABD SHOWED SIGMOID WALL THICKENING AND FAT STRANDING, C/W ACUTE DIVERTICULITIS . PT WAS ADMITTED AND RXED WITH ANTIBIOTICS . TODAY SHE REPORTS THAT SHE IS FEELING BETTER . Review of SystemsROS as noted in the HPI Vitals Ht: 5 ft 4 in (162.56 cm)09/30/2024 01:14 pm Wt: 178 lbs (80.74 kg)09/30/2024 01:16 pm BMI: 30.6009/30/2024 01:16 pm BP: 146/8409/30/2024 01:17 pm Pulse: 89 bpm09/30/2024 01:17 pm O2Sat: 91%09/30/2024 01:17 pm Results/InterpretationsNone recorded Physical ExamConstitutional:General Appearance: healthy-appearing, well-nourished, and well-developed. Level of Distress: NAD. Ambulation: ambulating normally. Psychiatric:Insight: good judgement. Mental Status: normal mood and affect and active and alert. Orientation: to time, place, and person. Memory: recent memory normal and remote memory normal. Head:Head: normocephalic and atraumatic. Eyes:Lids and Conjunctivae: no discharge or pallor and non-injected. Pupils: PERRLA. Corneas: grossly intact. Fundoscopic: normal vessels and optic discs, no exudates or hemorrhages, and grossly normal except where noted. EOM: EOMI. Lens: clear. Sclerae: non-icteric. Vision: peripheral vision grossly intact and acuity grossly intact. ENMT:Ears: no lesions on external ear, EACs clear, TMs clear, and TM mobility normal. Hearing: no hearing loss and Rinne AC>BC. Nose: no polyp, lesions on external nose, septal deviation, sinus tenderness, or nasal discharge and nares patent and nasal passages clear. Lips, Teeth, and Gums: no mouth or lip ulcers or bleeding gums and normal dentition. Oropharynx: no erythema or exudates and moist mucous membranes and tonsils not enlarged. Neck:Neck: supple, FROM, trachea midline, and no masses. Lymph Nodes: no cervical LAD, supraclavicular LAD, axillary LAD, or inguinal LAD. Thyroid: no enlargement or nodules and non-tender. Lungs:Respiratory effort: no dyspnea. Percussion: no dullness, flatness, or hyperresonance. Auscultation: no wheezing, rales/crackles, or rhonchi and breath sounds normal, good air movement, and CTA except as noted. Chest Deformity: no pectus carinatum or excavatum; no thoracic deformity, left sternal bulge, or barrel chest; and normal-spaced nipples. Cardiovascular:Apical Impulse: not displaced. Heart Auscultation: normal S1 and S2; no murmurs, rubs, or gallops; and RRR. Neck vessels: no carotid bruits. Pulses including femoral / pedal: normal throughout. Abdomen:Bowel Sounds: normal. Inspection and Palpation: no guarding, masses, rebound tenderness, or CVA tenderness and soft, non-distended, andLLQ tenderness. Liver: non-tender and no hepatomegaly. Spleen: non-tender and no splenomegaly. Hernia: none palpable. Musculoskeletal::Motor Strength and Tone: normal tone and motor strength. Joints, Bones, and Muscles: no contractures, malalignment, tenderness, or bony abnormalities and normal movement of all extremities. Extremities: no cyanosis, edema, varicosities, or palpable cord. Skin:Inspection and palpation: no rash, lesions, ulcer, induration, nodules, jaundice, or abnormal nevi and good turgor. Nails: normal. Back:Thoracolumbar Appearance: normal curvature. Assessment and Plan1. Diverticulitis of [id number]: Diverticulitis of large intestine without perforation or abscess without bleeding COLONOSCOPY SCREENING (PROC) Sutab 1.479-0.188-0.225 gram tablet - DIRECTED Qty: (1) 24 tablet box Refills: 0 Pharmacy: [facility] Patient InstructionsGOLYTELYDiscussion NotesPT WITH ACUTE DIVERTICULITIS . SX IS X 7 WEEKS AGO . RECOMMEND A COLONOSCOPY PER PROTOCOL. . Risks benefits and complications were explained to the pt. ( BLEEDING PERFORATION , INFECTION , ). PT VERBALIZES UNDERSTANDING AND IS WILLING TO PROCEDE . Return to Office Jeremy Wilson MD for Any 15 at [facility] Internal Med [facility] on 11/02/2024 at 02:45 PM Patient Medical History: Allergies List Reviewed Allergies NKDA Medications Reviewed Medications NameDate Source /17/24 entered Kaela Pelletier diclofenac sodium 75 mg tablet,delayed releaseTake 1 tablet(s) twice a day by oral route.07/06/24 prescribed Jeremy Wilson MD dicyclomine 20 mg tabletTake 1 tablet(s) 3 times a day by oral route as needed.03/16/24 prescribed Jeremy Wilson MD ergocalciferol (vitamin D2) 1,250 mcg (50,000 unit) capsuleTake 1 capsule(s) every week by oral route for 90 days.08/09/23 prescribed Jeremy Wilson MD gabapentin 600 mg tabletTake 1 tablet(s) 3 times a day by oral route.07/06/24 prescribed Jeremy Wilson MD Linzess 290 mcg capsuleTake 1 capsule(s) every day by oral route as needed.07/06/24 prescribed Jeremy Wilson MD lisinopriL 20 mg tabletTAKE 1 TABLET BY MOUTH EVERY DAY09/04/24 renewed Jeremy Wilson MD metoprolol tartrate 25 mg tabletTake 1 tablet(s) twice a day by oral route., start 5009/30/24 started Kaela Wick nitroglycerin 0.[address] by sublingual route.02/24/24 entered Kaela Pelletier ondansetron 4 mg disintegrating tabletPlace 1 tablet(s) every 6-8 hours by translingual route for 5 days.08/14/24 prescribed Clotilde Diallo NP pantoprazole 40 mg tablet,delayed releaseTAKE 1 TABLET BY MOUTH EVERY DAY09/23/24 renewed Jeremy Wilson MD PARoxetine 20 mg tabletTAKE 1 TABLET BY MOUTH EVERY DAY Internal Note:SAAD 01/24/24 NOV 07/06/24 ok to rf06/19/24 renewed Jeremy Wilson MD Sutab 1.479-0.188-0.225 gram tabletAS [id number]/22/25 prescribed Mala Henderson MD traZODone 100 mg tabletTake 1 tablet(s) every day by oral route at bedtime for 30 days. Note:MUST keep follow up appointment05/22/24 prescribed Clotilde Diallo NP Family HistoryReviewed Family History Father - Diabetes mellitus Brother - Diabetes mellitus Mother - Diabetes mellitus Mother - Hemochromatosis Past Medical HistoryReviewed Past Medical History Vaccine HistoryReviewed Vaccines Vaccine Type Date Amt. Route Site [facility] Lot # Mfr. Exp. Date VIS VIS Given Ctrs Influenza influenza, injectable, quadrivalent, preservative free 07/11/23 0.5 mL Intramuscular Deltoid, Left [id number] [facility] [employer] 03/08/24 Inactivated Influenza 04/14/2021 07/11/23 KAELA Castano Electronically Signed by: MALA HENDERSON MD Jeremy Wilson MD [address] [place] [address], [address] [address], [place], [address], [facility] 10/05/2024 12:16:21 Procedures Surgical History Date Name Laterality Status Provider Name and Address Organization Details Recorded Time 09/09/19 18 arthroscopic debridement of knee joint completed Not Available [facility] 11/07/2022 12:44:46 09/09/19 17 partial excision of patella completed Not Available [facility] 11/07/2022 12:44:46 09/09/19 06 cholecystectomy completed Not Available [facility] 11/07/2022 12:44:46 09/09/18 94 exploratory laparotomy completed Not Available [facility] 11/07/2022 12:44:46 09/09/18 91 ligation of fallopian tube completed Not Available [facility] 11/07/2022 12:44:46 Imaging Results None recorded. Procedure Notes None recorded. Medical Equipment None Reported. Allergies No known drug allergies Medications Name Sig Start Date Stop Date Status Note LastModified by Organization Details LastModified Time cyclobenz aprine 10 mg tablet TAKE 1 TABLET BY MOUTH THREE TIMES A DAY FOR 14 DAYS NEEDED 07/03 completed Not Available Not Available Not Available fluconazo le 100 mg tablet TAKE 1 TABLET BY MOUTH DAILY FOR 7 DAYS 07/03 completed Not Available Not Available Not Available fluticaso ne 250 mcg-salme terol 50 mcg/dose blistr powdr for inhalatio n Take 1 puff by mouth twice daily 2024 active Not Available Not Available Not Avai lable gabapenti n 600 mg tablet Take 1 tablet 3 times a day by oral route. 01/20 completed no longer taking Not Available Not Available Not Available doxycycli ne hyclate 100 mg capsule Take 1 capsule twice a day by oral route for 7 days. 02/[address] wilson vo Not Available Not Available Not Available paroxetin e 10 mg tablet TAKE 1 TABLET BY MOUTH EVERY DAY IN THE MORNING 06/10 completed Not Available Not Available Not Available trazodone 50 mg tablet TAKE 1 TABLET BY MOUTH EVERY DAY 06/10 completed Not Available Not Available Not Available tizanidin e 4 mg tablet TAKE 1 TABLET BY MOUTH TWICE A DAY NEEDED FOR MUSCLE SPASMS 02/23 completed Not Available Not Available Not Available benzonata te 200 mg capsule Take 1 capsule 3 times a day by oral route. 11/29 completed Not Available Not Available Not Available ondansetr on HCl 8 mg tablet TAKE 1 TABLET BY MOUTH UP TO 3 TIMES A DAY NEEDED FOR NAUSEA. active Not Available Not Available No t Available lisinopri l 20 mg tablet TAKE 1 TABLET BY MOUTH EVERY DAY 2024 active SAAD 07/06/24 NOV 12/29/24 ok to rf Not Available Not Available Not Available gabapenti n 400 mg capsule TAKE 1 CAPSULE BY MOUTH EVERY DAY 08/29 completed Not Available Not Available Not Available Diflucan 150 mg tablet Take 1 tablet every day by oral route. 09/30 completed Not Available Not Available Not Available metronida zole 500 mg tablet Take 1 tablet every 12 hours by oral route for 7 days. 05/28 completed Not Available Not Available Not Available sulfameth oxazole 800 mg-trimet hoprim 160 mg tablet TAKE 1 TABLET BY MOUTH TWICE A DAY FOR 10 DAYS 07/03 completed Not Available Not Available Not Available tramadol 50 mg tablet TAKE 1-2 TABLETS BY MOUTH TWICE DAILY NEEDED FOR PAIN 07/03 completed Not Available Not Available Not Available amoxicill in 500 mg tablet TAKE 4 TABLETS BY MOUTH 1 HOUR PRIOR TO APPOINTM ENT 01/25 completed Not Available Not Available Not Available alprazola m 0.5 mg tablet TAKE 1 TABLET BY MOUTH THE NIGHT BEFORE AND 1 TABLET 1 HOUR PRIOR TO APPOINTM ENT 01/25 completed Not Available Not Available Not Available trazodone 100 mg tablet Take 1 tablet every day by oral route at bedtime for 30 days. 01/20 completed no longer taking Not Available Not Available Not Available dicyclomi ne 20 mg tablet Take 1 tablet 3 times a day by oral route as needed. 01/20 completed patient not taking Not Available Not Available Not Available paroxetin e 20 mg tablet TAKE 1 TABLET BY MOUTH EVERY DAY FOR MENOPAUS E active Not Available Not Available No t Available pantopraz ole 40 mg tablet,de layed release TAKE 1 TABLET BY MOUTH EVERY DAY active Not Available Not Available No t Available Cipro 500 mg tablet Take 1 tablet twice a day by oral route for 7 days. 01/20 completed Not Available Not Available Not Available buspirone 10 mg tablet TAKE 1 TABLET BY MOUTH TWICE A DAY 07/06 completed SAAD 02/24/24 NOV 06/25/24 ok to rf Not Available Not Available Not Available lisinopri l 10 mg tablet TAKE 1 TABLET BY MOUTH EVERY DAY 11/29 completed Not Available Not Available Not Available nitroglyc azucena 0.4 mg sublingua l tablet Place by sublingu al route. 01/20 completed patient no longer taking Not Available Not Available Not Available gabapenti n 300 mg capsule TAKE 1 CAPSULE BY MOUTH TWICE A DAY active Not Available Not Available No t Available diclofena c sodium 75 mg tablet,de layed release Take 1 tablet twice a day by oral route. 01/20 completed no longer taking Not Available Not Available Not Available ergocalci ferol (vitamin D2) 1,250 mcg (50,000 unit) capsule Take 1 capsule every week by oral route for 90 days. 10/20 completed Not Available Not Available Not Available clobetaso l 0.05 % topical ointment 07/03 completed Not Available Not Available Not Available lorazepam 1 mg tablet TAKE 1 TABLET BY MOUTH TWICE A DAY NEEDED FOR NERVOUSN ESS 07/11 completed Not Available Not Available Not Available albuterol sulfate HFA 90 mcg/actua tion aerosol inhaler INHALE 2 PUFFS EVERY 4 HOURS BY INHALATI ON ROUTE. active Not Available Not Available No t Available ondansetr on 4 mg disintegr ating tablet Place 1 tablet every 6-8 hours by translin gual route for 5 days. 10/20 completed Not Available Not Available Not Available rosuvasta tin 5 mg tablet TAKE 1 TABLET BY MOUTH EVERY DAY active Not Available Not Available No t Available rosuvasta tin 10 mg tablet Take 1 tablet every day by oral route for 90 days. 09/30 completed Not Available Not Available Not Available metoprolo l tartrate 25 mg tablet Take 1 tablet twice a day by oral route. 2024 active Not Available Not Available Not Avai lable nitrofura ntoin monohydra te/macroc rystals 100 mg capsule TAKE 1 CAPSULE BY MOUTH TWICE A DAY active Not Available Not Available No t Available aspirin 01/20 completed no longer taking Not Available Not Available Not Available Linzess 145 mcg capsule TAKE 1 CAPSULE BY MOUTH DAILY 30 MINUTES BEFORE THE 1ST MEAL OF THE DAY 07/06 completed Not Available Not Available Not Available Linzess 290 mcg capsule Take 1 capsule every day by oral route as needed. 2024 active Not Available Not Available Not Avai lable Sutab 1.479-0.1 88-0.225 gram tablet DIRECTED 01/20 completed patinet not taking Not Available Not Available Not Available Vitals Date Recorded Body height Body mass index (BMI) Body weight Heart rate Oxygen saturation Oxygen saturation in Arterial blood by Pulse oximetry Systolic And Diastolic Provider Name and Address Organization Details Last Updated DateTime 5 162.56 cm 30.6 kg/m2 89650.4 4 g 89 /min 91 % 91 % 146/84 mm[Hg] Tammy Boudreaux [facility] [employer] [facility] [employer] 5 14:17:48 Date Recorded Body height Body mass index (BMI) Body weight Body temperature Heart rate Oxygen saturation Oxygen saturation in Arterial blood by Pulse oximetry Systolic And Diastolic Provider Name and Address Organization Details Last Updated DateTime 5 162.56 cm 30 kg/m2 98865.6 6 g 97.2 [degF] 82 /min 99 % 99 % 136/88 mm[Hg] Pratima olmedo Carol [employer] [facility] Ambassador [facility] 5 13:59:17 Date Recorded Body height Body mass index (BMI) Body weight Body temperature Heart rate Oxygen saturation Oxygen saturation in Arterial blood by Pulse oximetry Systolic And Diastolic Provider Name and Address Organization Details Last Updated DateTime 5 162.56 cm 29.5 kg/m2 61090.8 9 g 97.6 [degF] 72 /min 98 % 98 % 119/76 mm[Hg] Jhoana santos [employer] [facility] [employer] 5 14:49:33 Date Recorded Body height Body mass index (BMI) Body weight Body temperature Oxygen saturation Oxygen saturation in Arterial blood by Pulse oximetry Heart rate Systolic And Diastolic Provider Name and Address Organization Details Last Updated DateTime 5 162.56 cm 30.7 kg/m2 34782.0 3 g 98.7 [degF] 98 % 98 % 64 /min 128/78 mm[Hg] Jhoana Schafferracheal santos [employer] [facility] [employer] [facility] 5 15:07:13 Date Recorded Body height Body mass index (BMI) Body weight Body temperature Oxygen saturation Oxygen saturation in Arterial blood by Pulse oximetry Heart rate Systolic And Diastolic Provider Name and Address Organization Details Last Updated DateTime 4 162.56 cm 30.7 kg/m2 73893.0 3 g 97.5 [degF] 98 % 98 % 78 /min 121/72 mm[Hg] Jhoana Schafferracheal santos MD [employer] [facility] [employer] [facility] 4 14:29:35 Social History Question Answer Notes LastModified by Organizat ion Details LastModified Time Tobacco Smoking Status Former Smoker Not Available [facility] 11/07/2022 12:44:43 Do You Have An Advance Directive? No [id number] Information not available 11/07/2022 What Is Your Level Of Caffeine Consumption? Moderate [id number] Information not available 11/07/2022 What Type Of Diet Are You Following? REGULAR [id number].[id number] Information not available 11/07/2022 When Did You Quit Smoking? 17[facility] MIGRATION.[id number] Information not available 11/07/2022 Where Do You Live? [place] MIGRATION.[id number] Information not available 11/07/2022 Do You Have A Medical Power Of Pumper Helper? No [id number] Information not available 11/07/2022 What Is Your Relationship Status? [id number] Information not available 11/07/2022 Do You Have Smoke And Carbon Monoxide Detectors In Your Home? Yes [id number] Information not available 11/07/2022 At What Age Did You Start Smoking Tobacco? 20 MIGRATION.95714 [id number] Information not available 11/07/2022 Are You Passively Exposed To Smoke? No MIGRATION.72876 02891 Information not available 11/07/2022 Are There Any Smokers In Your House? No MIGRATION.14309 [id number] Information not available 11/07/2022 Do You Have Any Dietary Restrictions? No MIGRATION.[id number] Information not available 11/07/2022 Sex: Unknown Functional Status Question Answer Note LastModified by Organizat ion Details LastModified Time Do you or have you ever used any other forms of tobacco or nicotine? No [id number] Information not available 11/07/2022 What is your level of alcohol consumption? None [id number] Information not available 11/07/2022 Mental Status None recorded. Family History Relationship Description Onset Age of this Age Resolved Age Notes LastModified by Organization Details LastModified Time Father Diabetes mellitus [id number] Not available 11/07/2022 12:44:47 Brother Diabetes mellitus [id number] Not available 11/07/2022 12:44:47 Mother Diabetes mellitus [id number] Not available 11/07/2022 12:44:47 Mother Hemochromato sis [email or web address] Not available 03/2023 15:30:17 Medical History No medical history recorded. Gynecological History Statement/Question Response Date of Last Mammogram 09/09/2020 Obstetrics History GPAL:G 4 P 3 0 1 3 Type Value Full Term 3 Spontaneous 1 Living 3 Total 4 Immunizations Vaccine Type Date Status Note Provider Nam e and Address Organization Details Recorded Time COVID-19, mRNA, LNP-S, PF, 30 mcg/0.3 mL dose 03/03/2021 completed Not Available [facility] 5 15:01:39 COVID-19, mRNA, LNP-S, PF, 30 mcg/0.3 mL dose 03/24/2021 completed Not Available [facility] 5 15:01:39 Influenza, MDCK, quadrivalent, PF 06/19/2022 completed Not Available [facility] 5 15:01:39 Influenza, split virus, quadrivalent, PF 2023 completed KAELA Castano [place] [employer] [facility] 2023 17:48:54 Past Encounters Encounter ID Performer Location Encounter Start Date Encounter Closed Date Diagnosis/Indication Diagnosis SNOMED-CT Code Diagnosis ICD10 Code Diagnosis IMO Codes Diagnosis Note [id number] Jeremy Wilson MD [facility] Internal [facility] [address] [place] [address] 07/03/2022 00:00:00 07/03/2022 15:56:00 [id number] Jeremy Wilson MD [facility] Internal [facility] [address] [place] [address] 08/29/2022 00:00:00 08/29/2022 16:35:13 [id number] Jeremy Wilson MD [facility] Internal [facility] [address] [place] [address] 11/29/2022 15:11:09 11/29/2022 15:35:23 Essential hypertension 90628783 I10 under control Gastroesop hageal reflux disease 736898213 K21.9 meds help Neuropathy 204148555 G62 .9 on meds and help Osteoarthritis 659034856 M19.90 otc Obesity 398954687 E66.9 lose weight Anxiety 17246104 F41.9 meds help Hyperlipidemia 74236283 E78.5 labs good Chronic constipation 236 935065 K59.09 on meds Adult heal th examination 902355434 Z00.00 FLU- 06/30 MAMMOGRAM- 07/2022 COLONOSCOP Y- 07/2022 [id number] Jeremy Wilson MD [facility] Internal [facility] [address] [facility] [place] [address] 04/01/2023 15:35:00 04/01/2023 16:23:13 Essential hypertension 34914772 I10 under control Gastroesop hageal reflux disease 047112680 K21.9 meds help Neuropathy 238736200 G62 .9 on meds and help Osteoarthritis 208424643 M19.90 otc Obesity 285850468 E66.9 lose weight Anxiety 39273178 F41.9 meds help Hyperlipidemia 29122520 E78.5 labs good 07/31 Chronic constipation 236 639677 K59.09 Linzess prn Adult heal th examination 625839229 Z00.00 FLU- 06/30 MAMMOGRAM- 07/2022 COLONOSCOP Y- 07/2022 [id number] Jeremy Wilson MD [facility] Internal [facility] [address] [facility] [place] [address] 06/10/2023 14:16:54 06/10/2023 15:28:49 Anxiety 49049462 F41.9 buspar 10 mg bid Depressive disorder 3548 9007 F32.A Insomnia 442797381 G47.0 0 Neuropathy 250069975 G62 .9 on meds and help [id number] Jeremy Wilson MD [facility] Internal [facility] [address] [facility] [place] [address] 06/20/2023 11:38:56 06/20/2023 12:12:44 Low back pain 476011144 M54.50 SHE HAS TRAMADOL RX AND WILL START TAKING Chest wall pain 22286704 6 R07.89 [id number] Jeremy Wilson MD [facility] Internal [facility] [address] [facility] [place] [address] 2023 15:02:57 2023 15:51:53 Adult health examination 084882177 Z00.00 FLU- 07/01 MAMMOGRAM- 07/2022, ordered COLONOSCOP Y- 07/2022 Administra tion of influenza vaccine 19595393 Z23 Depressive disorder 3548 9007 F32.A better Anxiety 26185238 F41.9 buspar lower dose helps Screening mammography 24 985758 Z12.31 Postconcus bari syndrome 11253098 F07.81 [id number] Jeremy Wilson MD [facility] Internal [facility] [address] [facility] [place] [address] 08/08/2023 11:12:06 08/08/2023 11:51:14 Adult health examination 737390567 Z00.00 FLU- 07/01 MAMMOGRAM- 07/2022, ordered COLONOSCOP Y- 07/2022 Depressive disorder 3548 9007 F32.A under contyrol with meds Anxiety 64547947 F41.9 buspar helps Screening mammography 24 735413 Z12.31 due , getting it Essential hypertension 45569576 I10 under control Gastroesop hageal reflux disease 228561728 K21.9 meds needed regularly Neuropathy 612063960 G62 .9 on meds and help Osteoarthritis 607544569 M19.90 otc Hyperlipidemia 65814453 E78.5 labs good 07/31 Chronic constipation 236 438903 K59.09 Linzess prn Long-term drug therapy 603146720 Z79.427 [id number] Jeremy Wilson MD [facility] [address] [place] [address] 02/24/2024 16:17:28 02/24/2024 16:52:38 Essential hypertension 61353329 I10 under control Adult heal th examination 028539376 Z00.00 FLU- 07/01MAMMO GRAM-07/29 22, was orderedCOL ONOSCOPY- 07/2022 Depressive disorder 3548 9007 F32.A under control with meds Anxiety 78450715 F41.9 buspar helps Screening mammography 24 369774 Z12.31 Gastroesop hageal reflux disease 382760985 K21.9 meds needed regularly Neuropathy 428351270 G62 .9 on meds and help Osteoarthritis 868815627 M19.90 otc Hyperlipidemia 21935199 E78.5 on meds Chronic constipation 236 822633 K59.09 Linzess prn Sleep apnea 07352620 G47 .30 getting another sleep study Chest pain 63240973 R07. 9 getting card cath Hypertriglyceridemia 302 395910 E78.1 watching diet Insomnia 808922042 G47.0 0 Irritable bowel syndrome 73407950 K58.9 meds help Postconcus bari syndrome 17165478 F07.81 no new symptoms Vitamin D deficiency 347 41308 E55.9 on otc Family his tory of pheochromocytoma 9010652420 876756 Z80.8 labs next time, cbc, ferritin, irin, TIBC [id number] Jeremy Wilson MD [facility] Internal [address] [facility] [place] [address] 05/22/2024 15:04:41 05/22/2024 16:02:59 Postconcussion syndrome 14793314 F07.81 takes tylenol and ibuprofen or tramadol with headache, ice as needed that helpsdiscu ssed not to use narcotic for headache due to risk of rebound headachehe adaches can continue after concussion and can monitor for changes Low back pain 212576024 M54.50 has some chronic spinal stenosis, continue home meds otc Pain of hip region 53659 002 M25.559 right hip pain is new since fall with head injury and seems to be worse not better, walking worsens paincontin ue otc as well as the tramadol as needed will order PT and hip xray Insomnia 040944118 G47.0 0 needing refill of meds [id number] Jeremy Wilson MD [facility] Internal [address] [place] [address] 07/06/2024 15:14:05 07/06/2024 16:05:57 Essential hypertension 53045341 I10 under control Adult heal th examination 418352521 Z00.00 FLU- 07/01 - Declined-2 024MAMMOGR AM- 06/2024 @ Javier Not in chartCOLON OSCOPY- 07/2022 Depressive disorder 3548 9007 F32.A under control with meds Anxiety 17222936 F41.9 no meds needed Gastroesop hageal reflux disease 173538070 K21.9 meds needed regularly Osteoarthritis 992782134 M19.90 otc Hyperlipidemia 94077875 E78.5 on meds Chronic constipation 236 062049 K59.09 ^ Linzess Sleep apnea 59633171 G47 .30 ON CPAP Hypertriglyceridemia 302 100739 E78.1 watching diet Insomnia 002450553 G47.0 0 meds help Irritable bowel syndrome 96611874 K58.9 meds help Postconcus bari syndrome 22120203 F07.81 no new symptoms Vitamin D deficiency 347 95449 E55.9 on otc Family his tory of hemochromatosis 434273369 Z83.49 Arthritis of right hip 5436604289 288592 M13.851 to see ortho Neuropathy 589452564 G62 .9 ^ gabapentin [id number] Jeremy Wilson MD [facility] Internal [address] [place] [address] 08/14/2024 14:16:01 08/14/2024 14:50:10 Diverticulitis 506192885 K57.92 she was treated in the hospital but was not sent home with any medication s, hospital discharge reviewedwi ll treat with meds and advised clear liquid diet and stay hydrated, to er if worseningd iscussed it may take a while for healing Nausea 668457524 R11.0 try taking meds before meal, if nausea and pain continues do clear liquid diet, avoid coffee tea cola or fizzy soda Candidiasis of skin 4988 3006 B37.2 [id number] Mala Henderson MD [facility] General Surgery [address] [place] [address] 09/30/2024 14:07:14 09/30/2024 14:41:07 Diverticulitis of colon 245456129 K57.32 [id number] Jeremy Wilson MD [facility] Internal Med [address] [place] [address] 01/20/2025 13:50:12 01/20/2025 14:55:11 Pain in coccyx 19809157 M53.3 24507 Adult heal th examination 454810507 Z00.00 410349 Essential hypertension 85007350 I10 Asthma 658872471 J45.90 9 Chronic constipation 236 031962 K59.09 Acid reflux 463645618 K2 1.9 Under control at this time Menopause present 595327 006 Z78.0 11646 [id number] Jeremy Wilson MD [facility] Internal [address] [facility] [place] [address] 01/25/2025 14:37:55 01/25/2025 16:50:47 Hypertriglyceridemia 200729981 E78.1 Improve diet and exercise. Chronic ki dney disease stage 3B 721912114 N18.32 [id number] Referral sent [id number] Jeremy Wilson MD [facility] Internal [address] [facility] [place] [address] 05/14/2025 14:59:24 05/14/2025 16:12:48 Diverticulitis 794046357 K57.92 40224 Refusing cipro at this time Screening for cardiovascular system disease 882297838 Z13.6 702651 Health Concerns Section Related Observation LastModified by Organization Detai ls LastModified Time None Recorded Concern Status LastModified by Organization Details LastModified Time None Recorded Advance Directives Directive N: Payers Insurance Date Sequence Insurance Name Policy Number Policy Linda Covered Member ID Linda Member ID Guarantor Name 05/14/2025 1 [facility] [id number] Jas Wilkes [id number] Rama Wilkes Notes Date Note Type Note Provider Name and Address Organization Details Recorded Time 08/14/2024 text/html pt is here from a er follow up [facility]. pt stayed 3 dayspt states that the lower abdominal pain. did a ct and showed acute uncomplicated sigmoid diverticulitis is still hurting 4out of 10 ..pt staes she still feels nautious Clotilde Diallo NP [address], [place], [address], IMRSV 08/14/2024 15:26:09 09/30/2024 text/html ROS as noted in the HPI RAMA WAS SEEN IN THE OFFICE TODAY FOR EVALUATION .PT C/O ABD PAIN AND WAS SEEN IN THE ER ON 08/05. CT ABD SHOWED SIGMOID WALL THICKENING AND FAT STRANDING, C/W ACUTE DIVERTICULITIS . PT WAS ADMITTED AND RXED WITH ANTIBIOTICS . TODAY SHE REPORTS THAT SHE IS FEELING BETTER . Mala Henderson MD [address], [place], [address], IMRSV 09/30/2024 14:42:36 01/20/2025 text/html Patient is a .59y/o female that presents to the office for annual wellness. Patient currently reports no issues other than recent fall. Patient states she missed her bottom step and fell on her buttocks and landed super hard. Patient states she can not sit comfortably or too long due to the pain. She also reports having bruising and nausea. patient denies chest pain, abdominal pains, or any loss of consciousness. PTBI-seen neurology, pt oc health in past. no smoker labs- orderedmammogram- aware, sees GYNcolonoscopy- awareWWE- awareDEXA- 2021, awareFlu-no awareCovid- covid, two vaccines- no boosterTdap-aware,Pn eumo- aware JEN Kirk [address], [place], [address], [employer] [facility] Ambassador [facility] 01/20/2025 14:45:55 01/25/2025 text/html ROS as noted in the HPI Patient is 59y/o female who is here for lab discussion at this time. Patient has no additional concerns. Patient denies chest pain, dizziness, SOB, headaches or N/V at this time. JEN Kirk [address], [facility] [address], [place], [address], [employer] [facility] Ambassador [facility] 01/25/2025 16:40:11 05/14/2025 text/html ROS as noted in the HPI Patient is 59y/o female who is here to discuss concerns of tailbone pain and diverticulitis flare. She reprots she had bbq over the weekend and has been having LLQ pain and nausea since. She also states she will not take the cipro/flagyl together due to making her sick. She also has referral set up with GI, waiting on apt. She reports still having tail bone pain but has avoided taking medications. She reports sitting on donut pillow and walking frequently. She denies chest pain, shortness of breath, headaches, V/D, fevers, or vision changes. comptometrist- will check about nsaid useadvised risk due to kidney function JEN Kirk [address], [facility] [address], [place], [address], [employer] [facility] Ambassador [facility] 05/14/2025 16:04:32 OBGyn Episode No OBEpisode recorded.
--- OUTSIDE RECORDS SUMMARY | 2025-07-19 01:31 | XMS_ITS | Clinical Summary ---
Author Organization [facility] [address] Address [address] [place] [address] Care Team Providers Care Television Engineering Teacher Name Role Phone Jeremy Wilson MD Primary Care Provider [phone] Allergies No known active allergies Medications lisinopriL (PRINIVIL,ZESTRI L) 20 mg tablet Take 1 tablet (20 mg total) by mouth daily Active gabapentin (NEURONTIN) 300 mg capsule Take 1 capsule (300 mg total) by mouth 2 (two) times a day Active pantoprazole DR (PROTONIX) 40 mg EC tablet Take 1 tablet (40 mg total) by mouth daily 4 Active PARoxetine (PAXIL) 10 mg tablet Take 1 tablet (10 mg total) by mouth every morning Active busPIRone (BUSPAR) 10 mg tablet Take 1 tablet (10 mg total) by mouth 2 (two) times a day Active traZODone (DESYREL) 100 mg tablet Take 1 tablet (100 mg total) by mouth nightly Active ergocalciferol (VITAMIN D) 50,000 unit capsule Take 1 capsule (50,000 Units total) by mouth once a week Active coffee xt/phosphatidyl serine (NEURIVA ORIGINAL ORAL) Take by mouth A ctive rosuvastatin (CRESTOR) 10 mg tabletIndication s:Hyperlipidemia LDL goal <70 Take 1 tablet (10 mg total) by mouth daily 30 tablet 11 4 Active aspirin 81 mg enteric coated tabletIndication s:Chest pain, unspecified type,Family history of coronary artery disease,Pre-diab etes Take 1 tablet (81 mg total) by mouth daily 4 Active nitroglycerin (NITROSTAT) 0.4 mg SL tabletIndication s:acute episode of anginal pain Place 1 tablet (0.4 mg total) under the tongue every 5 (five) minutes as needed for chest pain May repeat dose q 5 min, up to 3 doses total 25 tablet 1 4 Active Additional Information Patient not taking.Reported on 03/24/2025 metoprolol tartrate (LOPRESSOR) 25 mg immediate release tabletIndication s:Chest pain, unspecified type,Essential hypertension Take 0.5 tablets (12.5 mg total) by mouth 2 (two) times a day 90 tablet 3 4 Active albuterol HFA (PROVENTIL HFA,VENTOLIN HFA,PROAIR HFA) 90 mcg/actuation inhaler Inhale 2 puffs as needed 3 Active fluticasone propion-salmeter oL (ADVAIR DISKUS) 250-50 mcg/dose diskus inhaler Inhale 1 puff 2 (two) times a day 3 Active Linzess 145 mcg capsule TAKE 1 CAPSULE BY MOUTH DAILY 30 MINUTES BEFORE THE 1ST MEAL OF THE DAY 4 Active ondansetron (ZOFRAN) 8 mg tablet TAKE 1 TABLET BY MOUTH UP TO 3 TIMES A DAY NEEDED FOR NAUSEA. 4 Active Active Problems Problem Noted Date Diagnosed Date Pre-diabetes 02/21/2024 Gastroesophageal reflux disease without esophagi tis 02/21/2024 Family history of coronary artery disease 2023 HOPE (obstructive sleep apnea) 02/21/2024 Essential hypertension 02/21/2024 Hyperlipidemia LDL goal <70 02/21/2024 Chest pain 02/21/2024 Second hand tobacco smoke exposure 02/21/2024 Surgical History Surgery Date Site/Laterality Comments TOTAL KNEE ARTHROPLASTY Left CHOLECYSTECTOMY PARTIAL KNEE ARTHROPLASTY Right TUBAL LIGATION Medical History Medical History Date Comments Hypertension Hyperlipidemia Acid indigestion Anxiety and depression Sleep apnea Asthma Family History Medical History Relation Name Comments Diabetes Brother Diabetes Father Heart disease Father No Known Problems Half-Brother Heart disease Maternal Grandmother Diabetes Mother Heart disease Paternal Grandmother Relation Name Status Comments Brother Alive Father Alive Half-Brother Alive Maternal Grandmother Mother Alive Paternal Grandmother Social History Tobacco Use Types Packs/Day Years Used Date Smoking Tobacco: Former Cigarettes Q uit: 02/20/2023 Passive Smoke Exposure: Past Tobacco Cessation:Counseling Given: Not Answered Comments Unknown Sex and Gender Information Value Date Recorded Sex Assigned at Not on file Legal Sex Female 2:34 AM [employer] Gender Identity Not on file Sexual Orientation Not on file Last Filed Vital Signs Vital Sign Reading Time Taken Comments Blood Pressure 130/70 03/24/2025 1:43 PM CDT Pulse 70 03/24/2025 1:43 PM CDT Temperature - - Respiratory Rate 18 04/27/2024 1:20 PM CDT Oxygen Saturation 96% 03/24/2025 1:43 PM CDT Inhaled Oxygen Concentration - - Weight 81.2 kg (179 lb) 03/24/2025 1:43 PM CDT Height 162.6 cm (5' 4) 03/24/2025 1:43 PM CDT Body Mass Index 30.73 03/24/2025 1:43 PM CDT Plan of Treatment Health Maintenance Due Date Last Done Comments Cervical Cancer Screening 1966 Colon Cancer Screening-Colonoscopy 1966 Depression Screening 1966 Hepatitis C Screening 1966 DTaP/Tdap/Td Vaccine (1 - Tdap) 1977 Hepatitis B Screening 1984 Regular Well Visit/Exam 18-64 1984 Pneumococcal vaccine <65 (1 of 2 - PCV) 1985 Breast Cancer Screening-Mammogram 05/27/2014 013, 05/18/2013 Zoster Vaccine (1 of 2) 2016 Covid-19 Vaccine (3 - season) 2025, 03/03/2021 Influenza Vaccine (#1) 2025 2023, 2021 Procedures Procedure Name Priority Date/Time Associated Diagnosis Comments SCREENING MAMMOGRAM W DONELL Routine 05/27/2013 2:37 PM CDT from Last 3 Months or Most Recently Relevant to Health Maintenance Results * Screening Mammogram W [place] (05/27/2013 2:37 PM CDT) Anatomical Region Laterality Modality Breast N/A Mammography 05/27/2013 2:37 PM CDT Narrative 05/29/2013 1:47 PM CDT AMERICA DAVIS M.D. MICHELE MALDONADO M.D. FINAL REPORT The radiology attending physician has personally reviewed this study, and has reviewed and/or edited this written report and agrees with it. ACC# Date Time Exam [id number] May 27, 2013 13:46:00 [facility] [id number] Diag Mammogram Unilateral R Technologist(s): Vicki Bello; ; [id number] May 27, 2013 14:37:00 [facility] [id number] Unilateral Tomosynthesis R Technologist(s): Vicki Bello; ; [id number] May 27, 2013 14:14:00 [facility] 87366P Sono Breast (Unilateral) R EXAMINATION: RIGHT UNILATERAL FULL FIELD DIGITAL DIAGNOSTIC MAMMOGRAM, DIGITAL BREAST TOMOSYNTHESIS, AND RIGHT BREAST SONOGRAM HISTORY: 47-year-old woman with abnormal screening mammogram. Recent screening mammogram performed at [facility] demonstrated a new focal asymmetry in the middle of the right breast at 12 o'clock position. MAMMOGRAM TECHNIQUE: Additional views of the right breast were obtained utilizing full field digital mammography. Digital breast tomosynthesis was also performed and reviewed as a part of this examination. COMPARISON: 05/18/2013, 05/19/2012 BREAST PARENCHYMAL COMPOSITION: There are scattered fibroglandular densities. MAMMOGRAM FINDINGS: There is an intervally developed focal asymmetry in the upper right breast at 12 o'clock position in the area of concern on recent screening mammogram. There is no definite associated mass. There is no associated calcification. SONOGRAM FINDINGS: Directed sonogram of the right breast at 12 o'clock position was performed. Corresponding to the mammographic finding of concern, there is a hypoechoic linear structure, which may represent a dilated ductal system, located at 12 o'clock position 2 cm from the nipple, with no definite internal blood flow on color Doppler. Directed physical examination of the area of concern demonstrates no definite suspicious palpable abnormality at this time. IMPRESSION: 1) Developed focal asymmetry in the right upper breast at 12 o'clock position correlating to hypoechoic linear structure on ultrasound. The differential diagnosis is multiple intraductal papillomas, noncalcified ductal carcinoma in situ, fibrosis or a pseudo angiomatous stromal hyperplasia. Tissue sampling is recommended. Stereotactic-guided core needle biopsy is preferred because it will allow for larger sampling. The above findings and recommendations were discussed with the patient at the conclusion of the examination. Attempts were made to reach the office of the referring physician, Dr. Raquel More, however there was no one at the office to answer calls. Dr. Raquel More will be called the next business day (05/28/13). The patient has been scheduled to return to the [facility] for a stereotactic-guided core needle biopsy of the right breast on 06/04/2013 at 10:15 a.m. OVERALL FINAL ASSESSMENT: BI-RADS Category 4B: Suspicious abnormality. Intermediate suspicion for malignancy. ADDENDUM Addendum issued 05/27/[address] Davis and Jen The above findings and recommendations were called into the office of Gonzalo Maurer by Dr. Maldonado on 05/28/2013 at 1:00 p.m. and discussed with nurse practitioner Ortega who works with Dr. Raquel More. OVERALL FINAL ASSESSMENT: BI-RADS Category 4B: Suspicious abnormality. Intermediate suspicion for malignancy. Requested By: Gonzalo Welch M.D. Dictated By: MICHELE MALDONADO M.D. on May 27 2013 4:00P This document has been electronically signed by: AMERICA DAVIS M.D. on May 27 2013 4:30P Addendum Dictated by: MICHELE MALDONADO M.D. on May 28 2013 2:05P This Addendum has been electronically signed by: AMERICA DAVIS M.D. on May 29 2013 1:47P Procedure Note Provider, MD Michael - 01/11/2017 Lrary HAYDEN M.D. FINAL REPORT The radiology attending physician has personally reviewed this study, and has reviewed and/or edited this written report and agrees with it. ACC# Date Time Exam [id number] May 27, 2013 13:46:00 [facility] 82066 Diag Mammogram Unilateral R Technologist(s): Vicki Bello; ; [id number] May 27, 2013 14:37:00 [facility] 90035G Unilateral Tomosynthesis R Technologist(s): KierstenVicki montalvo; ; [id number] May 27, 2013 14:14:00 [facility] [id number] Sono Breast (Unilateral) R EXAMINATION: RIGHT UNILATERAL FULL FIELD DIGITAL DIAGNOSTIC MAMMOGRAM, DIGITAL BREAST TOMOSYNTHESIS, AND RIGHT BREAST SONOGRAM HISTORY: 47-year-old woman with abnormal screening mammogram. Recent screening mammogram performed at [facility] demonstrated a new focal asymmetry in the middle of the right breast at 12 o'clock position. MAMMOGRAM TECHNIQUE: Additional views of the right breast were obtained utilizing full field digital mammography. Digital breast tomosynthesis was also performed and reviewed as a part of this examination. COMPARISON: 05/18/2013, 05/19/2012 BREAST PARENCHYMAL COMPOSITION: There are scattered fibroglandular densities. MAMMOGRAM FINDINGS: There is an intervally developed focal asymmetry in the upper right breast at 12 o'clock position in the area of concern on recent screening mammogram. There is no definite associated mass. There is no associated calcification. SONOGRAM FINDINGS: Directed sonogram of the right breast at 12 o'clock position was performed. Corresponding to the mammographic finding of concern, there is a hypoechoic linear structure, which may represent a dilated ductal system, located at 12 o'clock position 2 cm from the nipple, with no definite internal blood flow on color Doppler. Directed physical examination of the area of concern demonstrates no definite suspicious palpable abnormality at this time. IMPRESSION: 1) Developed focal asymmetry in the right upper breast at 12 o'clock position correlating to hypoechoic linear structure on ultrasound. The differential diagnosis is multiple intraductal papillomas, noncalcified ductal carcinoma in situ, fibrosis or a pseudo angiomatous stromal hyperplasia. Tissue sampling is recommended. Stereotactic-guided core needle biopsy is preferred because it will allow for larger sampling. The above findings and recommendations were discussed with the patient at the conclusion of the examination. Attempts were made to reach the office of the referring physician, Dr. Raquel More, however there was no one at the office to answer calls. Dr. Raquel More will be called the next business day (05/28/13). The patient has been scheduled to return to the [facility] for a stereotactic-guided core needle biopsy of the right breast on 06/04/2013 at 10:15 a.m. OVERALL FINAL ASSESSMENT: BI-RADS Category 4B: Suspicious abnormality. Intermediate suspicion for malignancy. ADDENDUM Addendum issued 05/27/[address] Davis and Jen The above findings and recommendations were called into the office of Gonzalo Maurer by Dr. Maldonado on 05/28/2013 at 1:00 p.m. and discussed with nurse practitioner Ortega who works with Dr. Raquel More. OVERALL FINAL ASSESSMENT: BI-RADS Category 4B: Suspicious abnormality. Intermediate suspicion for malignancy. Requested By: Gonzalo Welch M.D. Dictated By: MICHELE MALDONADO M.D. on May 27 2013 4:00P This document has been electronically signed by: AMERICA DAVIS M.D. on May 27 2013 4:30P Addendum Dictated by: MICHELE MALDONADO M.D. on May 28 2013 2:05P This Addendum has been electronically signed by: AMERICA DAVIS M.D. on May 29 2013 1:47P Historical Provider MD [facility] Margo l Result from Last 3 Months or Most Recently Relevant to Health Maintenance Insurance re[employer]ounces OOS Care Teams Television Engineering Teacher Relationship Specialty Start Date End Date Jeremy Wilson MD [address] [place] [address] DEPT [place] [address] PCP - General Internal Medicine 02/19/24
--- OUTSIDE RECORDS SUMMARY | 2025-07-19 01:31 | XMS_ITS | Clinical Summary ---
Author Organization [facility] Address [address] [place] [address] Care Team Providers Care Oversize Load Pilot Escort Name Role Phone Tanisha Salcido ENGINEER CONDUCTOR-C Primary Care Provider [phone] Encounters Date Type Department Care Team Description 06/21/2025 Documentation Only [employer] [facility] [address] [phone] Wing Doe DO 06/01/2025 12:15 PM CDT Office Visit [employer] [facility] [address] [place] [address] [address] [place] [address] Wing Doe DO Stage 3 chronic kidney disease, not otherwise specified (HCC) (Primary Dx); Diastolic dysfunction; Simple chronic bronchitis (HCC); Obstructive sleep apnea syndrome; Erosive osteoarthritis; Gastroesophageal reflux disease; Hypertensive chronic kidney disease; Pure hypercholesterolemi a, not otherwise specified 05/26/2025 Documentation Only [employer] [address] [phone] Wing Doe DO 05/26/2025 Documentation Only [employer] [employer] [address] [address] Wing Doe DO 05/26/2025 Documentation Only [employer] [address] [phone] Wing Doe DO from Last 3 Months Social History Tobacco Use Types Packs/Day Years Used Date Smoking Tobacco: Never Assessed Comments Unknown Sex and Gender Information Value Date Recorded Sex Assigned at Not on file Legal Sex Female 4:57 PM EDT Gender Identity Not on file Sexual Orientation Not on file Last Filed Vital Signs Vital Sign Reading Time Taken Comments Blood Pressure 110/70 06/01/2025 12:26 PM CDT Pulse 67 06/01/2025 12:26 PM CDT Temperature 36.7 C (98 F) 06/01/2025 12:26 PM CDT Respiratory Rate 18 06/01/2025 12:26 PM CDT Oxygen Saturation 99% 06/01/2025 12:26 PM CDT Inhaled Oxygen Concentration - - Weight 81.6 kg (180 lb) 06/01/2025 12:26 PM CDT Height - - Body Mass Index - - Plan of Treatment Upcoming Encounters Date Type Department Care Team (Late st Contact Info) Description 11/30/2025 12:45 PM CDT Office Visit [facility] [address] [facility] [address] [place] [address] Wing Doe, [address] [facility] [address] [place] [address] Health Maintenance Due Date Last Done Comments Breast Cancer Screening 1966 Hepatitis B Vaccine (1 of 3 - 19+ 3-dose series) 1985 Pneumococcal Vaccine: 50+ Ye ars (1 of 2 - PCV) 1985 Colorectal Cancer Screening: Annual FOBT 2015 Colorectal Cancer Screening: Colonoscopy 2015 Colorectal Cancer Screening: Sigmoidoscopy 2015 Influenza Vaccine (#1) 2025 2023, 2021 Insurance [facility] BCBS [place] Care Teams Oversize Load Pilot Escort Relationship Specialty Start Date End Date Tanisha Salcido FNP-C [address] [place] [address] PCP - General Internal Medicine 01/26/25
--- NOTE | 2025-07-19 08:40 | WPDANESEPPF ---
Anes - Initial Pre Proc Eval Procedure: Operation Date: 07/19/25 09:30 Proposed Procedures p Esophagogastroduodenoscopy EGD - Srikanth Walker MD Date/Time: 07/19/25 08:40 Surgeon: Srikanth Walker MD Pre Op Diagnosis: GERD Patient Data Age: 60 Gender: F Height: 1.63 m Weight: 81.7 kg Allergies Allergy/AdvReac Type Severity Reaction Status Date / Time codeine AdvReac Intermediate Itching Verified 07/19/25 08:42 Home Medications ?Medication ?Instructions ?Recorded ?Confirmed ?Type albuterol sulfate 90 mcg/actuation 1 inh inhalation QID PRN Shortness 07/21/19 07/15/25 History aerosol inhaler (ProAir HFA) Of Breath lisinopril 20 mg tablet 20 mg PO DAILY 03/02/24 07/15/25 History metoprolol tartrate 25 mg tablet 12.5 mg PO BID 03/02/24 07/15/25 History paroxetine HCl 10 mg tablet 10 mg PO DAILY 03/02/24 07/15/25 History rosuvastatin 10 mg tablet 10 mg PO DAILY 03/02/24 07/15/25 History trazodone 100 mg tablet 100 mg PO HS PRN Insomnia 03/02/24 07/15/25 History gabapentin 100 mg capsule 600 mg PO BID PRN pain 07/31/24 07/15/25 History dicyclomine 10 mg capsule 10 mg PO .every 6 hours PRN 06/17/25 07/15/25 Rx abdominal pain #120 caps famotidine 20 mg tablet 20 mg PO DAILY 06/17/25 07/15/25 History plecanatide 3 mg tablet (Trulance) 3 mg PO DAILY #90 tabs 06/17/25 07/15/25 Rx Patient hx anesthesia problems: none Family hx anesthesia problems: none Results Review: All pre-operative results and documents have been reviewed as part of the pre-operative evaluation. [facility] Past Medical History Medical History (Updated 06/17/25 @ 16:04 by Taylor Bishop APRN) Anxiety Fatty liver Back pain Arthritis Asthma Hypoglycemia Spinal stenosis GERD (gastroesophageal reflux disease) HOPE (obstructive sleep apnea) Surgical History Surgical History History of tubal ligation Status post right partial knee replacement Painful total knee replacement, left Family History Family History Father Family history of congenital heart disease Family history of arthritis Mother Family history of malignant neoplasm of breast in first degree relative Social History Social History Smoking packs per day: 0.5 Smoking cigarettes per day: 10.0 Years smoked: 1 Smoking pack-years: 0.50 Smoking status: Never smoker Tobacco type: cigarettes Second hand tobacco smoke exposure: Yes Smoking end date: 09/09/85 Substance use: never Substance use type: does not use Living arrangements: with family Additional living arrangements comments: with sp Gender identity (if verbalized by the patient): Female Spiritual care concerns: No Anes - Eval Final PreProcedure Day of Procedure 07/19/25 08:40 Patient weight: obese Heart: regular rate and rhythm Lungs: clear to auscultation Airway: Mallampati scale class II Neurological: alert and oriented Last oral intake: >/= 8 hours ASA classification: III Emergent: no Anesthetic plan: proceed Anesthesia type and monitoring: general GIVS and standard monitoring Results Review: All pre-operative results and documents have been reviewed as part of the pre-operative evaluation. Informed Consent: The patient's anesthetic plan and its attendant risks and benefits were discussed with the patient/family/POA. Questions were solicited and answers provided to the satisfaction of the patient/family/POA.
[2025-07-19 08:44] VITALS: BP 125/75; PULSE 55; RESP 20; TEMP 36.3; O2SAT 100; BMI 30.9
[2025-07-19] MEDS: LACTATED RINGERS 1,000 ML 150 ML IV CONT (08:56)
--- NOTE | 2025-07-19 09:19 | PM.HPGS ---
History of Present Illness History of Present Illness Consent: Risks, benefits, and alternatives have been discussed and questions answered. Patient agrees to proceed with procedure. Chief complaint: GERD Narrative: Rama Wilkes is a 60 year old female here for first egd, h/o gerd on famotidine Review of Systems Review of Systems: All systems reviewed & are unremarkable except as noted in HPI and below PMFSH Past Medical History Medical History (Updated 06/17/25 @ 16:04 by Taylor Bishop, IDALIA) Anxiety Fatty liver Back pain Arthritis Asthma Hypoglycemia Spinal stenosis GERD (gastroesophageal reflux disease) HOPE (obstructive sleep apnea) Surgical History Surgical History History of tubal ligation Status post right partial knee replacement Painful total knee replacement, left Family History Family History Father Family history of congenital heart disease Family history of arthritis Mother Family history of malignant neoplasm of breast in first degree relative Social History Social History Smoking packs per day: 0.5 Smoking cigarettes per day: 10.0 Years smoked: 1 Smoking pack-years: 0.50 Smoking status: Never smoker Tobacco type: cigarettes Second hand tobacco smoke exposure: Yes Smoking end date: 09/09/85 Substance use: never Substance use type: does not use Living arrangements: with family Additional living arrangements comments: with sp Gender identity (if verbalized by the patient): Female Spiritual care concerns: No Meds Home Medications and Allergies Home Medications ?Medication ?Instructions ?Recorded ?Confirmed ?Type albuterol sulfate 90 mcg/actuation 1 inh inhalation QID PRN Shortness 07/21/19 07/15/25 History aerosol inhaler (ProAir HFA) Of Breath lisinopril 20 mg tablet 20 mg PO DAILY 03/02/24 07/19/25 History metoprolol tartrate 25 mg tablet 12.5 mg PO BID 03/02/24 07/19/25 History paroxetine HCl 10 mg tablet 10 mg PO DAILY 03/02/24 07/19/25 History rosuvastatin 10 mg tablet 10 mg PO DAILY 03/02/24 07/19/25 History trazodone 100 mg tablet 100 mg PO HS PRN Insomnia 03/02/24 07/15/25 History gabapentin 100 mg capsule 600 mg PO BID PRN pain 07/31/24 07/19/25 History dicyclomine 10 mg capsule 10 mg PO .every 6 hours PRN 06/17/25 07/15/25 Rx abdominal pain #120 caps famotidine 20 mg tablet 20 mg PO DAILY 06/17/25 07/19/25 History plecanatide 3 mg tablet (Trulance) 3 mg PO DAILY #90 tabs 06/17/25 07/19/25 Rx Allergies Allergy/AdvReac Type Severity Reaction Status Date / Time codeine AdvReac Intermediate Itching Verified 07/19/25 08:42 Vital Signs Vital Signs - 24 hr 07/19/25 08:44 Temperature 97.4 F L Pulse Rate 55 L Respiratory Rate 20 Blood Pressure 125/75 Pulse Oximetry 100 Oxygen Delivery Room Air Exam Const: General: comfortable and no acute distress HENMT: Face/Nose/Sinus: Normal nares present Eyes: General: appearance normal, both eyes and all related structures Neck: Neck: no JVD Resp: Auscultation: clear to auscultation bilaterally Cardio: Rate: regular rate Rhythm: regular rhythm GI: Inspection: non-distended GI Palp: Yes Soft to palpation Skin: General skin exam: normal color Extrem: General: normal to inspection Psych: Mental Status: mental status grossly normal Assessment and Plan Assessment and plan (1) GERD (gastroesophageal reflux disease): Code(s): K21.9 - Gastro-esophageal reflux disease without esophagitis Status: Acute Assessment and Plan: egd with bx
--- NOTE | 2025-07-19 09:22 | S_PTH ---
PATIENT: Rama Wilkes LOC: [facility]#:[id number] AGE/SX: 60/F ROOM: RE07/19/[address]: Srikanth Walker MD : 1965 BED: DIS: 07/19/2025 SPEC #: [id number] RECD: 07/19/25 09:38 STATUS: SALVADOR [place] #: [id number] NILESH: 07/19/25 09:[address]: Srikanth Walker DEPT: [facility] Surgical RECD BY: Ale Flowers ENTERED: 07/19/25 09:38 SP TYPE: Surgical OTHR DR: Tanisha Salcido, HAND FUR CLEANER Tissues: A - Gastric Biopsy Procedures: Hematoxylin and Eosin Stain Gross and Microscopic Level 4
[2025-07-19 09:24] VITALS: BP 118/79; PULSE 64; RESP 21; O2SAT 99
[2025-07-19 09:34] VITALS: BP 91/53; PULSE 54; RESP 17; O2SAT 100
[2025-07-19 09:44] VITALS: BP 107/58; PULSE 57; RESP 18; O2SAT 100
== END 2025-07-19 09:59 | disposition home or self-care (01) ==
PROVIDERS: Referring Provider Nurse Practitioner; Visit Provider Internal Medicine Gastroenterology
PROC: 0DJ08ZZ Inspection of Upper Intestinal Tract, Via Natural or Artificial Opening Endoscopic (ICD-10-PCS; CPT 43239; principal; 2025-07-19 09:30)
DX: K21.9 Gastro-esophageal reflux disease without esophagitis (principal); K44.9 Diaphragmatic hernia without obstruction or gangrene; J45.909 Unspecified asthma, uncomplicated; E16.2 Hypoglycemia, unspecified; G47.33 Obstructive sleep apnea (adult) (pediatric); F41.9 Anxiety disorder, unspecified; M19.90 Unspecified osteoarthritis, unspecified site; M48.00 Spinal stenosis, site unspecified; E66.9 Obesity, unspecified; Z68.31 Body mass index [BMI] 31.0-31.9, adult; Z79.51 Long term (current) use of inhaled steroids; Z98.890 Other specified postprocedural states; Z98.51 Tubal ligation status; Z80.3 Family history of malignant neoplasm of breast; Z82.49 Family history of ischemic heart disease and other diseases of the circulatory system
CPT/HCPCS: 43239; 88305; J2704; J7120